=== PATIENT | female | born 1990 | race Caucasian/White ===

== ENCOUNTER → 2019-11-15 16:49 | Outpatient (BNVA) | payer MEDICAID, SELFPAY | PROVIDERS: Family Provider Nurse Practitioner Family; Visit Provider Nurse Practitioner Family | DX: R05 Cough (principal); R50.9 Fever, unspecified | CPT/HCPCS: 87635 ==

== ENCOUNTER → 2019-11-19 10:40 | Outpatient (BNVA) | payer MEDICAID, SELFPAY | PROVIDERS: Family Provider Nurse Practitioner Family; Visit Provider Nurse Practitioner Family | DX: J02.9 Acute pharyngitis, unspecified (principal); J32.9 Chronic sinusitis, unspecified; J30.89 Other allergic rhinitis | CPT/HCPCS: 87071; 87880 ==

== ENCOUNTER → 2020-02-16 10:57 | Outpatient (BNVA) | payer MEDICAID, SELFPAY | PROVIDERS: Family Provider Nurse Practitioner Family; Visit Provider Nurse Practitioner Family | DX: Z11.59 Encounter for screening for other viral diseases (principal); Z20.828 Contact with and (suspected) exposure to other viral communicable diseases; J06.9 Acute upper respiratory infection, unspecified | CPT/HCPCS: 87635 ==

== ENCOUNTER → 2020-05-18 15:58 | Outpatient (BNVA) | payer MEDICAID, SELFPAY | PROVIDERS: Family Provider Nurse Practitioner Family; Visit Provider Nurse Practitioner Family | DX: M79.641 Pain in right hand (principal) | CPT/HCPCS: 73130 ==

== ENCOUNTER → 2020-09-13 16:31 | Outpatient (BNVA) | payer MEDICAID, SELFPAY | PROVIDERS: Family Provider Nurse Practitioner Family; Visit Provider Nurse Practitioner Family | DX: N92.0 Excessive and frequent menstruation with regular cycle (principal); J30.89 Other allergic rhinitis; R53.83 Other fatigue; E55.9 Vitamin D deficiency, unspecified; Z79.899 Other long term (current) drug therapy; Z13.6 Encounter for screening for cardiovascular disorders | CPT/HCPCS: 80053; 80061; 81003; 82306; 83036; 83550; 84439; 84443; 85025 ==

== ENCOUNTER → 2020-10-02 15:09 | Outpatient (BNVA) | payer MEDICAID, SELFPAY | PROVIDERS: Family Provider Nurse Practitioner Family; Visit Provider Obstetrics & Gynecology | DX: M72.0 Palmar fascial fibromatosis [Dupuytren] (principal); N93.9 Abnormal uterine and vaginal bleeding, unspecified | CPT/HCPCS: 88175; 88305 ==

== ENCOUNTER → 2020-10-13 10:33 | Outpatient (BNVA) | payer MEDICAID, SELFPAY | PROVIDERS: Family Provider Nurse Practitioner Family; Visit Provider Obstetrics & Gynecology | DX: N93.9 Abnormal uterine and vaginal bleeding, unspecified (principal) | CPT/HCPCS: 76830 ==

== ENCOUNTER → 2020-11-09 14:36 | Outpatient (BNVA) | payer MEDICAID, SELFPAY | PROVIDERS: Family Provider Nurse Practitioner Family; PCP Nurse Practitioner Family; Visit Provider Obstetrics & Gynecology | DX: N93.9 Abnormal uterine and vaginal bleeding, unspecified (principal); R10.2 Pelvic and perineal pain | CPT/HCPCS: 87635 ==

== ENCOUNTER 2020-11-14 14:36 | Observation (INO) | payer MEDICAID, SELFPAY ==
[2020-11-10 13:42] VITALS: BMI 19.0
[2020-11-14] VITALS (15 sets, daily range): BP systolic 100–132; BP diastolic 51–74; PULSE 58–83; RESP 12–28; TEMP 36.4–36.8; O2SAT 97–100
[2020-11-14 10:38] LABS: Basophils % 0.3 %; Eosinophils # 0.1 10^3/uL (0.0-0.8); Eosinophils % 1.3 %; Hemoglobin 14.7 g/dL (11.5-15.3); Lymphocytes # 1.8 10^3/uL (0.8-4.8); Lymphocytes % 23.6 %; Mean Corpuscular HGB Conc 34.2 g/dL (30.0-36.0); Mean Corpuscular Hemoglobin 32.5 pg (28.0-34.0); Mean Corpuscular Volume 95.1 fL (81-99); Monocytes # 0.6 10^3/uL (0.2-0.9); Monocytes % 7.6 %; Neutrophils # 5.12 10^3/uL (1.8-7.7); Neutrophils % 66.9 %; Nucleated Red Blood Cells % 0 %; Platelet Count 203 10^3/cmm (130-400); Red Blood Count 4.52 10^6/uL (4.1-5.3); Red Cell Distribution Width 11.7 % (12.1-15.1); White Blood Count 7.6 10^3/uL (4.0-10.0)
[2020-11-14] MEDS: acetaminophen 1,000 MG/100 ML PIGGYBACK 400 MG IV (10:47)
[2020-11-14] MEDS: sodium chloride 0.9% 1,000 ML 30 ML IV (10:47)
[2020-11-14] MEDS: gabapentin 300 mg Capsule PO (10:51)
[2020-11-14] MEDS: phenazopyridine 100 mg Tablet 200 MG PO (10:51)
[2020-11-14] MEDS: CELEcoxib 200 mg Capsule 400 MG PO (10:51)
[2020-11-14] MEDS: ketorolac 30 mg/mL INJ IVP ×2 (10:51→16:32)
[2020-11-14 10:58] LABS: OR HCG Qualitative Urine Negative (Negative)
[2020-11-14 11:02] LABS: Anion Gap 15.1 (5-19); Blood Urea Nitrogen 10 mg/dL (6-20); Calcium 8.9 mg/dL (8.5-10.5); Carbon Dioxide 23 mmol/L (22-29); Chloride 106 mmol/L (98-107); Glomerular Filtration Rate 116.6 mL/min (90-130); Glucose 85 mg/dL (65-115); Osmolality Calculated 288 mOsm/kg (285-295); Potassium 4.1 mmol/L (3.5-5.1); Sodium 140 mmol/L (136-145)
--- NOTE | 2020-11-14 11:53 | W.PM.OPSUD ---
Surgery/Procedure H&P Update DATE OF PROCEDURE: November 14, 2020 DATE H&P PERFORMED: 11/09/20 H&P UPDATE INFORMATION: I have reviewed H&P completed within last 30 days, I have examined patient prior to procedure and No changes to prior documentation PREOP DIAGNOSIS: abnormal uterine bleeding PLANNED PROCEDURE: Operation Date: 11/14/20 11:35 Proposed Procedures p Laparoscopic Assist Vaginal Hysterectomy 57887 n93.9 r10.2(Not Applicable) - Tiff Mahoney MD s bilateral Salpingectomy(Bilateral) - Tiff Mahoney MD
--- NOTE | 2020-11-14 12:09 | P.ANESASSM_ITS ---
Pre-Anesthetic Assessment Pre-Anesthetic Assessment: Height/Weight: Height 1.63 m Weight 50.349 kg Temp Pulse Resp BP Pulse Ox 98.3 F 64 18 118/70 100 11/14/20 10:07 11/14/20 10:07 11/14/20 10:07 11/14/20 10:07 11/14/20 10:07 Preop Diagnosis: abnormal uterine bleeding Proposed Procedure: Operation Date: 11/14/20 11:35 Proposed Procedures p Laparoscopic Assist Vaginal Hysterectomy 83869 n93.9 r10.2(Not Applicable) - Tiff Mahoney MD s bilateral Salpingectomy(Bilateral) - Tiff Mahoney MD Was Beta Delon taken within 24 hours: N/A Was Clonidine taken within 24 hours: N/A Last intake: Intake Last Liquid Date 11/13/20 Last Liquid Time 22:00 Last Solid Date 11/13/20 Last Solid Time 18:00 Social: Social History: Tobacco and No alcohol Exam: Pre-Anes Outpt Exam: alert, oriented x 3 and clear to auscultation bilaterally Airway: Submandibular: WNL Cervical ROM: WNL MP: 2 History/ROS: No significant history except as noted Pulmonary: Pulmonary: None reported CV/HEM: CV/HEM: None reported : Comments: Cervical cancer Hepatic: Hepatic: None reported GI: GI: None reported Metabolic: Metabolic: None reported Musc/skel: Musc/skel: None reported Neuropsych: Neuropsych: None reported Anesthetic Plan: ASA status: 2 Anesthesia: General Meds/Allergies Current Medications: Current Medications Generic Name Dose Route Start Last Admin Trade Name Freq PRN Reason Stop Dose Admin Sodium Chloride 1,000 mls @ 30 ml s/hr 11/14/20 10:00 11/14/20 10:47 Sodium Chloride 0.9% IV 11/15/20 09:59 30 mls/hr .Q24H KE Administration PFSH Anesthesia PFSH: Medical History Cough Environmental and seasonal allergies Fatigue Hypertension screen Medication management Menorrhagia Vitamin D deficiency Surgical History History of tubal ligation 2014 at [facility] [place] Dr. Arango Family History Mother Cancer bone cancer Cervical cancer Ovarian cancer Clotting disorder Hypertension Stroke Ovarian cyst Grandfather Cancer Maternal-- cancer spread throughout body Family/Other Ovarian cancer Maternal Aunts x4 Cancer Nephew--appendix cancer Hypertension x1 Maternal Aunt Thyroid disease Maternal Aunt Ovarian cyst x3 Maternal Aunt Grandmother Clotting disorder Maternal Denies family history of Diabetes Hyperlipidemia Chronic kidney disease (CKD) Data Anesthesia CBC & Chem 7: 11/14/20 10:31 11/14/20 10:31 Other Labs: Laboratory Results - last 48 hr 11/14/20 11/14/20 11/14/20 10:31 10:31 10:56 WBC 7.6 RBC 4.52 Hgb 14.7 Hct 43.0 MCV 95.1 MCH 32.5 MCHC 34.2 RDW 11.7 L Plt Count 203 MPV 11.0 H Neut % (Auto) 66.9 Lymph % (Auto) 23.6 [place] % (Auto) 7.6 Eos % (Auto) 1.3 Baso % (Auto) 0.3 Neut # (Auto) 5.12 Lymph # (Auto) 1.8 [place] # (Auto) 0.6 Eos # (Auto) 0.1 Baso # (Auto) 0.0 Nucleated RBC % (auto) 0 Nucleated RBCs # 0.0 Sodium 140 Potassium 4.1 Chloride 106 Carbon Dioxide 23 Anion Gap 15.1 BUN 10 Creatinine 0.6 GFR Calculation 116.6 Glucose 85 Calculated Osmolality 288 Calcium 8.9 Urine HCG, Qual Negative Cardiac Studies: No Data to Display
[2020-11-14] MEDS: vasopressin 20 unit/mL INJ INJECTION (14:00)
--- NOTE | 2020-11-14 14:36 | PM.OP ---
Operative Report Date of procedure: November 14, 2020 Pre-op Diagnosis: abnormal uterine bleeding Post-op diagnosis: same Post-op Findings: Normal appearing uterus, tubes and ovaries Procedure Done: laparoscopic assisted vaginal hysterectomy, cystoscopy Specimens removed/disposition: uterus, bilateral fallopian tubes Surgeon: Tiff Mahoney Anesthesia: General Estimated blood loss (mL): 150 IV fluids (mL): 800 Urine output (mL): 20 Complications: none Condition: stable Disposition: PACU Procedure: The patient was taken to the operating room where general anesthesia was administered and found to be adequate. She was prepped and draped in the normal sterile fashion in the dorsal lithotomy position in [facility]. A Castro catheter was placed. A weighted speculum was placed into the vagina and the anterior lip of the cervix was grasped with a single tooth tenaculum. The Zumi uterine manipulator was placed. The weighted speculum was removed. The gloves were changed and attention was turned to the abdomen. A 5 mm infraumbilical incision was made. Using a 5 mm port with the camera, the port was placed into the abdomen. The abdomen was insufflated. Two low, lateral 5 mm ports were placed on the left and right under direct visualization from the camera. The right tube and ovary were grasped and elevated. Using the laparoscopic cautery, the infundibulopelvic ligaement as well as the round ligament were ligated. This was performed the same way on the left. The bladder flap was created sharply with the scissors. Attention was then turned to the vaginal portion of the procedure. The weighted speculum was placed into the vagina. The zumi manipulator was removed. The single tooth tenaculum was removed and replaced with the angeline's tenaculum. 5 mL of dilute Pitressin was injected at the vesicovaginal junction. A circumferential incision was made at the vesicovaginal junction and the vaginal mucosa reflected cephalad. The posterior peritoneum was entered sharply with the Metzenbaum scissors and the long weighted speculum replaced. Using the Janna clamps the uterosacral ligaments were clamped cut and suture-ligated. Then sequentially the uterine arteries and cardinal ligaments were clamped cut and suture-ligated. A single-tooth tenaculum was used to deliver the uterus. The utero-ovarian ligaments were clamped cut and suture-ligated bilaterally and the specimen was removed. The bilateral fallopian tubes and ovaries were visualized and found to be normal. The peritoneum was closed with a pursestring using 2-0 Vicryl. The vaginal cuff was closed with 0 Vicryl in a running locked pattern incorporating the uterosacral ligaments into the lateral aspects of the vaginal cuff. The Castro catheter was removed and the cystoscope advanced into the bladder. The patient was given pyridium and bilateral spill was noted. There were no injuries or deficits noted in the bladder. The cystoscope was removed and the Castro was replaced. Vaginal packing was placed for good hemostasis. Tolerated the procedure well. Sponge lap and needle counts were correct x3. She was taken to the recovery room in stable condition.
[2020-11-14] MEDS: ondansetron 2 mg/ML SDV 2 mL 4 MG IVP (14:55)
[2020-11-14] MEDS: HYDROmorphone 1 mg/mL INJ 1 mL 0.5 MG IVP (14:57)
--- NOTE | 2020-11-14 16:02 | ANE.PACU2 ---
Inpatient post-anesthesia follow up: Airway intact: Yes Vital signs: Temperature 98 F Pulse Rate 60 Respiratory Rate 16 Blood Pressure 132/74 Pulse Oximetry 100 Oxygen Delivery Me thod Room Air Oxygen Flow Rate 8 Fraction of Inspir ed Oxygen Hydration adequate: Yes Nausea and vomiting: No Pain level: 4 Mental status: Baseline
[2020-11-14] MEDS: docusate sodium 100 mg Capsule PO (18:37)
[2020-11-14] MEDS: HYDROcodone-acetaminophen 5-325 mg Tablet PO (19:20)
[2020-11-14] MEDS: dextrose 5%-lactated ringers 1,000 ML 125 ML IV (19:23)
--- NOTE | 2020-11-14 21:06 | PC.NURSE ---
Patient up to ambulate floor. This RN with patient for intial ambulation activity. Patient tolerates activity well. AR RN
[2020-11-14] MEDS: acetaminophen 325 mg Tablet 650 MG PO (23:27)
[2020-11-15] MEDS: HYDROcodone-acetaminophen 5-325 mg Tablet PO ×2 (00:55→07:31)
[2020-11-15 04:00] VITALS: BP 112/62; PULSE 70; RESP 16; TEMP 36.9; O2SAT 98
[2020-11-15] MEDS: dextrose 5%-lactated ringers 1,000 ML 125 ML IV (04:04)
--- NOTE | 2020-11-15 05:49 | PC.NURSE ---
Patient in hallways ambulating OBGYN floor for the 2nd time this shift. DEENA RN
[2020-11-15 06:06] LABS: Hematocrit 38.1 % (37.0-47.0); Hemoglobin 12.6 g/dL (11.5-15.3); Mean Corpuscular HGB Conc 33.1 g/dL (30.0-36.0); Mean Corpuscular Hemoglobin 32.1 pg (28.0-34.0); Mean Corpuscular Volume 96.9 fL (81-99); Mean Platelet Volume 11.6 fL (7.4-10.4); Platelet Count 200 10^3/cmm (130-400); Red Blood Count 3.93 10^6/uL (4.1-5.3); Red Cell Distribution Width 11.7 % (12.1-15.1); White Blood Count 17.1 10^3/uL (4.0-10.0)
[2020-11-15] MEDS: docusate sodium 100 mg Capsule PO (08:44)
[2020-11-15] MEDS: ibuprofen 800 mg tablet PO (08:44)
--- NOTE | 2020-11-15 10:11 | PC.NURSE ---
Dr Mahoney in room and removed packing
[2020-11-15 10:30] VITALS: BP 124/78; PULSE 52; RESP 18; TEMP 36.6; O2SAT 100
--- NOTE | 2020-11-15 11:06 | P.DS_ITS ---
Discharge Providers Date of Admission: 11/14/20 14:36 Date of Discharge: November 15, 2020 Attending Provider at Admission: Tiff Mahoney MD Attending Provider at Discharge: Tiff Mahoney MD Primary Care Provider: HENRY Pena Diagnoses at Discharge Discharge Diagnosis (1) state: Status: Acute Reason for Visit Reason for Visit: total vag hysterectomy Hospital Course Hospital Course The patient was admitted for surgery. She did well postoperatively and was ready for discharge on day #1 Physical Exam Const: COMMON NORMALS: no acute distress, average body habitus, patient oriented x3, no limitations, healthy appearing and alert GENERAL APPEARANCE: cooperative, comfortable, well kempt and well developed ORIENTATION/CONSCIOUSNESS: Yes awake, Yes oriented to person, Yes oriented to place and Yes oriented to time Neck/C-Spine: COMMON NORMALS: full ROM and supple Resp: COMMON NORMALS: normal respiratory effort EFFORT & INSPECTION: Yes able to speak in complete sentences GI: COMMON NORMALS: Soft to palpation and non-tender PALPATION: Yes Soft to palpation : EXTERNAL FEMALE EXAM: Yes other (packing removed) Extremity: COMMON NORMALS: no clubbing, cyanosis or edema and no calf tendern ess Neuro: COMMON NORMALS: patient oriented x3 SENSORIUM/ORIENTATION: Yes alert, Yes oriented to person, Yes oriented to place and Yes oriented to time Psych: APPEARANCE: Yes well kempt Urinary Catheter Management^: Castro: Cath Placed During This Visit: yes, but has since been removed by the nurse Reason for Continuing Indwelling Catheter: Decision to DC Catheter Urinary Catheter Date of Insertion: 11/14/20 Urinary Catheter Time of Insertion: 13:00 Date Urinary Catheter Removed: 11/15/20 Time Urinary Catheter Discontinued: 10:05 Discharge Data Data Completed and Pending: Pending at discharge Category Date Time Status ES surgery / GI i mages Routine Exams 11/14/20 12:55 Ordered Urine Culture Rou elzbi[facility] 11/14/20 09:59 Results Pathology: Surgic al [PTH] Routine Pth 11/14/20 14:21 Received Labs from last 24 hours 11/15/20 05:15 WBC 17.1 H RBC 3.93 L Hgb 12.6 Hct 38.1 MCV 96.9 MCH 32.1 MCHC 33.1 RDW 11.7 L Plt Count 200 MPV 11.6 H Vitals: Last Vital Signs Temp 98.4 F 11/15/20 04:00 Pulse 70 11/15/20 04:00 Resp 16 11/15/20 04:00 BP 112/62 11/15/20 04:00 Pulse Ox 98 11/15/20 04:00 Discharge Plan Discharge Patient Disposition: Home Condition: Stable Prescriptions: New oxycodone-acetaminophen 5-325 mg tablet 1 tab PO Q4H Qty: 30 RF: 0 Continued ibuprofen 800 mg tablet 800 mg PO Q8H RF: 0 ferrous gluconate 324 mg (37.5 mg iron) tablet 324 mg PO DAILY Qty: 30 RF: 2 cholecalciferol (vitamin D3) 1,250 mcg (50,000 unit) capsule 1,250 mcg PO .weekly Qty: 4 RF: 2 Discharge Orders: Discharge Order (Routine); Ordered 11/15/20 Ordered By: Tiff Mahoney Referrals: Tiff Mahoney MD [Physician] - 11/20/20 3:00 pm (* Your incision check is on 11/20/2020 at 3:00pm * Your 6 week follow up appointment is on 12/25/2020 at 2:00pm) Patient Instructions: Vaginal Hysterectomy (DC), Cystoscopy (DC), Laparoscopic Hysterectomy (DC), OB Discharge Report, OB Food/Drug Interaction Guide, Opioid Safety Discharge Attestations Time Spent in Discharge Care*: less than 30 min Quality Metrics Clinical Quality Measures During this hospital stay, did patient experience: None Coding Level of Care Code Acute Chg FW DC note Diagnoses state Z39.2
[2020-11-15 11:13] VITALS: BP 124/78; PULSE 52; RESP 18; TEMP 36.6; O2SAT 100
== END 2020-11-15 11:20 | disposition home or self-care (01) ==
LOC: OBGYN 14:37
PROVIDERS: Admitting Provider Obstetrics & Gynecology; PCP Nurse Practitioner Family; Visit Provider Obstetrics & Gynecology
PROC: 0UT9FZZ Resection of Uterus, Via Natural or Artificial Opening With Percutaneous Endoscopic Assistance (ICD-10-PCS; CPT 58552; principal; 2020-11-14 11:35)
PROC: (CPT 58700; 2020-11-14 11:35)
PROC: 0TJB8ZZ Inspection of Bladder, Via Natural or Artificial Opening Endoscopic (ICD-10-PCS; CPT 52000; 2020-11-14 11:35)
DX: N93.9 Abnormal uterine and vaginal bleeding, unspecified (principal)
CPT/HCPCS: 58552; 36415; 80048; 84703; 85025; 85027; 87086; 88307; G0378; J0690; J1100; J1170; J1885; J2405; J2704; J3010; J3490; J7030

== ENCOUNTER 2022-02-18 21:25 | Emergency (ER) | payer MEDICAID, SELFPAY ==
[2022-02-18 21:30] VITALS: BP 134/85; PULSE 98; RESP 16; TEMP 36.8; O2SAT 100; BMI 19.7
--- NOTE | 2022-02-18 22:41 | ED_ITS ---
HPI - Female Genitourinary General: Chief complaint: Urogenital-Female Stated complaint: bladder pain Time Seen by Provider: 02/18/22 22:35 History of Present Illness: 31-year-old female comes in today with complaints of pelvic discomfort. Patient reports increased pain with urination. Patient appears in mild to moderate pain. Patient appears nontoxic. Patient reports no fever or nausea or vomiting. Patient does have a grade 3 cystocele and is scheduled for surgical repair later in the month. Patient came in tonight due to increased pain and discomfort. Review of Systems Const: Denies: fever(s) : Reports: difficulty voiding and dysuria [facility] ED PFSH: Medical History (Updated 02/18/22 @ 23:37 by HENRY Man) Carpal tunnel syndrome Cough Dupuytrens contracture Environmental and seasonal allergies Fatigue Hypertension screen Medication management Menorrhagia state Right hand pain Vitamin D deficiency Surgical History (Updated 01/30/22 @ 11:23 by Tiff Mahoney MD) History of tubal ligation 2014 at [facility] [place] Dr. Arango Hx of hysterectomy (~11/14/20) Laproscopic assisted vaginal hysterectomy-- Dr. Mahoney at [facility] Family History Mother Cancer bone cancer Cervical cancer Ovarian cancer Clotting disorder Hypertension Stroke Ovarian cyst Grandfather Cancer Maternal-- cancer spread throughout body Family/Other Ovarian cancer Maternal Aunts x4 Cancer Nephew--appendix cancer Hypertension x1 Maternal Aunt Thyroid disease Maternal Aunt Ovarian cyst x3 Maternal Aunt Grandmother Clotting disorder Maternal Denies family history of Diabetes Hyperlipidemia Chronic kidney disease (CKD) Social History Smoking and tobacco status: current every day smoker Physical Exam Const: COMMON NORMALS: alert HENMT: COMMON NORMALS: normocephalic HEAD & SCALP: normocephalic Neck/C-Spine: COMMON NORMALS: full ROM Resp: COMMON NORMALS: normal respiratory effort and clear to auscultation bilaterally AUSCULTATION: clear to auscultation bilaterally Cardio: COMMON NORMALS: regular rate RATE: regular rate : COMMON NORMALS: Yes no CVA tenderness BLADDER/KIDNEY EXAM: Yes no CVA tenderness Back/Pelvis: COMMON NORMALS: no CVA tenderness Neuro: SENSORIUM/ORIENTATION: Yes alert Skin: COMMON NORMALS: no rashes or lesions noted GENERAL SKIN EXAM: no rashes or lesions noted Course Vital Signs: Vital signs: Vital Signs Temperature 98.2 F 02/18/22 21:30 Pulse Rate 98 02/18/22 21:30 Respiratory Rate 16 02/18/22 21:30 Blood Pressure 134/85 02/18/22 21:30 Pulse Oximetry 100 02/18/22 21:30 Oxygen Delivery Me thod 02/18/22 21:30 MDM - Female Medical Decision Making 31-year-old female comes in today for complaints of pelvic pain with urination. Patient has a cystocele and is scheduled later this month for repair. On exam abdomen soft nontender. Bowel sounds are normal. Patient showed me a picture of her external genitalia which notes a visible urethra but no other signs of abnormality. Differential diagnosis includes urinary tract infection, cystocele, malingering. Urinalysis was unremarkable. Patient had significant improvement in pain after hydrocodone tablet. Patient was written for some Pyridium recommend to use it for discomfort and 5 tablets of hydrocodone for breakthrough pain. Encourage fluids rest and follow-up with primary care and [facility]. Lab Data Laboratory Results HCG, Qual Negative (Negative) 02/18/22:44 Urine Color Colorless (Yellow) 02/18/22:44 Urine Appearance Clear (CLEAR) 02/18/22 22:44 Urine pH 7 (5-7) 02/18/22:44 Ur Specific [place] 1.000 (1.005-1.030) L 02/18/22:44 Urine Protein Neg (Negative) 02/18/22 22:44 Urine Glucose (UA) Norm (Normal) 02/18/22 22:44 Urine Ketones Negative (Negative) 02/18/22 22:44 Urine Blood Neg (Negative) 02/18/22:44 Urine Nitrate Negative (Negative) 02/18/22:44 Urine Bilirubin Neg (Negative) 02/18/22 22:44 Urine Urobilinogen Norm mg/dL (Negative) 02/18/22 22:44 Ur Leukocyte Esterase Negative (Negative) 02/18/22 22:44 Discharge Plan Discharge Patient Disposition: Home Clinical Impression: [place]-Walker grade 3 cystocele, Dysuria Condition: Stable Prescriptions: New phenazopyridine 100 mg tablet 100 mg PO Q8H PRN (Reason: dysuria) Qty: 10 0RF hydrocodone-acetaminophen 5-325 mg tablet 1 tab PO Q8H PRN (Reason: pain) Qty: 5 0RF No Action sulfamethoxazole-trimethoprim [Bactrim DS] 800-160 mg tablet 1 tab PO BID 10 Days Qty: 20 0RF Discharge Orders: Discharge ED (Routine); Ordered 02/18/22 Ordered By: Adin Plaza Referrals: Jessie Acosta FNP [Primary Care Provider] - Discharge Diet: Usual diet Discharge Activity: Increase activity as tolerated Patient Instructions: Dysuria (ED), Opioid Safety Activity Restrictions/Additional Instructions: Follow-up with [facility] in the morning. Drink plenty of water. Return to ER for fever greater than 100.4, uncontrolled pain, persistent nausea and vomiting. Coding Level of Care Code ED Assessment Consultant for Annemarie Fwd Exam Detailed
[2022-02-18 22:55] LABS: HCG Qualitative Urine. Negative (Negative)
[2022-02-18] MEDS: HYDROcodone-acetaminophen 5-325 mg Tablet 1 TAB PO (23:02)
[2022-02-18 23:21] LABS: Add Urine Microscopic? NO; Charge for UA Resulting for Rev
[2022-02-18 23:29] LABS: Urine Appearance Clear (CLEAR); Urine Color Colorless (Yellow); pH Urine 7 (5-7)
[2022-02-18 23:30] LABS: Bilirubin Urine Neg (Negative); Blood Urine Neg (Negative); Glucose Urine UA Norm (Normal); Ketones Urine Negative (Negative); Leukocyte Esterase Urine Negative (Negative); Nitrate Urine Negative (Negative); Protein Urine Neg (Negative); Urobilinogen Urine Norm (Negative)
[2022-02-18] MEDS: phenazopyridine 100 mg Tablet 200 MG PO (23:42)
== END 2022-02-18 23:48 | disposition home or self-care (01) ==
PROVIDERS: Emergency Medicine; Emergency Provider Nurse Practitioner Family; PCP Nurse Practitioner
DX: N81.10 Cystocele, unspecified (principal); R30.0 Dysuria; F17.210 Nicotine dependence, cigarettes, uncomplicated
CPT/HCPCS: 81003; 81025; 99283

== ENCOUNTER 2022-03-05 14:09 | Observation (INO) | payer MEDICAID, SELFPAY ==
[2022-03-04 08:54] VITALS: BMI 19.7
[2022-03-05] VITALS (21 sets, daily range): BP systolic 91–129; BP diastolic 51–91; PULSE 50–87; RESP 8–18; TEMP 36.1–36.7; O2SAT 97–100
[2022-03-05] MEDS: acetaminophen 1,000 MG/100 ML PIGGYBACK 400 MG IV (11:15)
[2022-03-05] MEDS: sodium chloride 0.9% 1,000 ML 30 ML IV (11:15)
[2022-03-05] MEDS: phenazopyridine 100 mg Tablet 200 MG PO (11:37)
[2022-03-05] MEDS: scopolamine 1.5 Patch 1 PATCH TRANSDERMA (11:37)
--- NOTE | 2022-03-05 11:41 | P.HPUD_ITS ---
Surgery/Procedure H&P Update DATE OF PROCEDURE: March 05, 2022 DATE H&P PERFORMED: 02/28/22 H&P UPDATE INFORMATION: I have reviewed H&P completed within last 30 days, I have examined patient prior to procedure and No changes to prior documentation PREOP DIAGNOSIS: cystocele, stress incontinence PLANNED PROCEDURE: Operation Date: 03/05/22 12:30 Proposed Procedures p Anterior repair 90341, possible sling 16845,N81.2 Patient is allergic to Latex(Not Applicable) - Tiff Mahoney MD s Possible Sling(Not Applicable) - Tiff Mahoney MD Related Problem List Diagnoses (1) [place]-Walker grade 3 cystocele:
--- NOTE | 2022-03-05 12:29 | P.ANESASSM_ITS ---
Pre-Anesthetic Assessment Height/Weight: Height 1.63 m Weight 52.163 kg Temp Pulse Resp BP Pulse Ox O2 Del Method 97.3 F L 86 18 129/91 99 03/05/22 11:05 03/05/22 11:05 03/05/22 11:05 03/05/22 11:05 03/05/22 11:05 03/05/22 11:05 Preop Diagnosis: cystocele, stress incontinence Operation Date: 03/05/22 12:30 Proposed Procedures p Anterior repair 65695, possible sling 56277,N81.2 Patient is allergic to Latex(Not Applicable) - Tiff Mahoney MD s Possible Sling(Not Applicable) - Tiff Mahoney MD Familial anesthetic complications: none Was Beta Delon taken within 24 hours: N/A Was Clonidine taken within 24 hours: N/A Last intake: Intake Last Liquid Date 03/04/22 Last Liquid Time 18:00 Last Solid Date 03/04/22 Last Solid Time 18:00 Social Tobacco and No alcohol Exam alert, oriented x 3 and regular rate & rhythm Airway Submandibular: within normal limits Cervical ROM: within normal limits Mallampati: Class II Pulmonary Chronic Obstructive Pulmonary Disease Anesthetic Plan ASA status: 2 Anesthesia: General Medications/Allergies Home Medications Medication Instructions Recorded Confirmed Last Taken Type acetaminophen 325 mg tablet 325 mg PO QID PRN Pain 02/28/22 03/05/22 03/04/22 History (Tylenol) ibuprofen 200 mg tablet 200 mg PO Q6H PRN Pain 02/28/22 03/05/22 03/04/22 His tory Allergies Allergy/AdvReac Type Severity Reaction Status Date / Time Latex, Natural Rubber Allergy Intermediate sick Verified 02/28/22 08:17 Current Medications Generic Name Dose Route Start Last Admin Trade Name Freq PRN Reason Stop Dose Admin Sodium Chloride 1,000 mls @ 30 mls/hr 03/05/22 11:00 03/05/22 11:15 Sodium Chloride 0.9% IV 03/06/22 10:59 30 mls/hr .Q24H KE Administration PFSH Anesthesia Medical History Carpal tunnel syndrome Cough Dupuytrens contracture Environmental and seasonal allergies Fatigue Hypertension screen Medication management Menorrhagia state Right hand pain Vitamin D deficiency Surgical History History of tubal ligation 2015 at [facility] [place] Dr. Arango Hx of hysterectomy (~11/14/20) Laproscopic assisted vaginal hysterectomy-- Dr. Mahoney at [facility] Family History Mother Cancer bone cancer Cervical cancer Ovarian cancer Clotting disorder Hypertension Stroke Ovarian cyst Grandfather Cancer Maternal-- cancer spread throughout body Family/Other Ovarian cancer Maternal Aunts x4 Cancer Nephew--appendix cancer Hypertension x1 Maternal Aunt Thyroid disease Maternal Aunt Ovarian cyst x3 Maternal Aunt Grandmother Clotting disorder Maternal Denies family history of Diabetes Hyperlipidemia Chronic kidney disease (CKD) Social History Smoking and tobacco status: current every day smoker Data Anesthesia Cardiac Studies: No Data to Display
[2022-03-05] MEDS: ceFAZolin 2,000 MG in sodium chloride 0.9% (plus) 50 ML 100 MG IV ×2 (13:00→21:45)
--- NOTE | 2022-03-05 13:48 | PM.OP ---
Operative Report Date of procedure: March 05, 2022 Pre-op diagnosis: Preop Diagnosis cystocele, stress incontinence Post-op diagnosis: same Procedure done: anterior repair Surgeon: Tiff Mahoney Anesthesia: MAC Estimated blood loss (mL): 10 IV fluids (mL): 700 Urine output (mL): 50 Complications: none Findings: once bladder is drained, first degree cystocele. Condition: stable Disposition: PACU Brief History: The patient underwent a vaginal hysterectomy about a year ago. She presented last month with complaints of falling bladder She had a grade 3 cystocele on exam. She wanted it repaired. Procedure: The patient was taken to the operating room, where monitored anesthesia was administered and found to be adequate. She was prepped and draped in the normal sterile fashion in the dorsal lithotomy position in tanja stirrups. A demarco catheter was placed. Once the bladder was drained, there was a grade 1 cystocele. The vaginal cuff was identified and an allis clamp was placed in the midline of the vaginal mucosa, approximately 2 cm anterior to the cuff. A second allis clamp was placed in the midline of the vaginal mucosa, approximately 3 cm from the introitus. An incision was made in the midline from clamp to clamp. The vaginal mucosa was clamped laterally and the cystocle dissected off of the vesicovaginal fascia. The vesicovaginal fascia was brought together in the midline with figure of 8 interrupted sutures of O-Vicryl. The excess vaginal tissue was trimmed. The incision was repaired with 0-Vicryl in a running fashion. Vaginal packing was placed. Sponge lap and needle counts were correct x3. She was taken to the recovery room in stable condition.
[2022-03-05] MEDS: ketorolac 30 mg/mL INJ IVP ×2 (15:21→20:18)
[2022-03-05] MEDS: dextrose 5%-lactated ringers 1,000 ML 125 ML IV ×2 (15:21→23:09)
[2022-03-05] MEDS: docusate sodium 100 mg Capsule PO (16:55)
[2022-03-05] MEDS: HYDROcodone-acetaminophen 5-325 mg Tablet PO ×2 (16:55→23:09)
--- NOTE | 2022-03-05 17:10 | ANE.PACU2 ---
Inpatient post-anesthesia follow up: Airway intact: Yes Vital signs: Temperature 97 F Pulse Rate 52 Respiratory Rate 17 Blood Pressure 102/71 Pulse Oximetry 100 Oxygen Delivery Me thod Room Air Oxygen Flow Rate 8 Fraction of Inspir ed Oxygen Hydration adequate: Yes Nausea and vomiting: No Pain level: 3 Mental status: Baseline
[2022-03-06] MEDS: ketorolac 30 mg/mL INJ IVP (02:16)
[2022-03-06 03:00] VITALS: BP 95/54; PULSE 62; RESP 16; O2SAT 97
[2022-03-06 05:00] VITALS: BP 102/64; PULSE 56; TEMP 36.7; O2SAT 98
[2022-03-06] MEDS: ceFAZolin 2,000 MG in sodium chloride 0.9% (plus) 50 ML 100 MG IV (05:03)
[2022-03-06 05:30] LABS: Hematocrit 36.1 % (37.0-47.0); Hemoglobin 12.6 g/dL (11.5-15.3); Mean Corpuscular HGB Conc 34.9 g/dL (30.0-36.0); Mean Corpuscular Hemoglobin 33.2 pg (28.0-34.0); Mean Corpuscular Volume 95.3 fl (81-99); Mean Platelet Volume 11.4 fL (7.4-10.4); Platelet Count 213 10^3/cmm (130-400); Red Blood Count 3.79 10^6/uL (4.1-5.3); Red Cell Distribution Width 11.5 % (12.1-15.1); White Blood Count 19.3 10^3/uL (4.0-10.0)
[2022-03-06] MEDS: HYDROcodone-acetaminophen 5-325 mg Tablet PO (05:31)
--- NOTE | 2022-03-06 09:02 | P.DS_ITS ---
Discharge Providers Date of Admission: 03/05/22 14:09 Date of Discharge: March 06, 2022 Attending Provider at Admission: Tiff Mahoney MD Attending Provider at Discharge: Tiff Mahoney MD Primary Care Provider: Jessie Acosta APN Diagnoses at Discharge Discharge Diagnosis (1) [place]-Walker grade 3 cystocele: Status: Acute Reason for Visit Reason for Visit: cystocele Hospital Course Hospital Course The patient was admitted for surgery. She did well postoperatively and was ready for discharge. Physical Exam Narrative: The patient is doing well this morning. She has been able to void after the catheter was removed. She states that the pressure is improved after surgery. Const: COMMON NORMALS: no acute distress, average body habitus, patient oriented x3, no limitations, healthy appearing, alert and well nourished GENERAL APPEARANCE: cooperative, comfortable, well kempt and well developed ORIENTATION/CONSCIOUSNESS: Yes awake, Yes oriented to person, Yes oriented to place and Yes oriented to time Resp: COMMON NORMALS: normal respiratory effort EFFORT & INSPECTION: Yes able to speak in complete sentences GI: COMMON NORMALS: Soft to palpation and non-tender PALPATION: Yes Soft to palpation Extremity: COMMON NORMALS: no calf tenderness Neuro: COMMON NORMALS: patient oriented x3 SENSORIUM/ORIENTATION: Yes alert, Yes oriented to person, Yes oriented to place and Yes oriented to time Psych: COMMON NORMALS: mental status grossly normal, Normal thought process present, cooperative, normal affect and speech normal APPEARANCE: Yes well kempt SPEECH: Yes normal speech THOUGHT PROCESS: Normal thought process present Urinary Catheter Management: Castro Latex Free: Cath Placed During This Visit: yes, but has since been removed by the nurse Reason for Continuing Indwelling Catheter: Decision to DC Catheter Urinary Catheter Date of Insertion: 03/05/22 Urinary Catheter Time of Insertion: 13:18 Date Urinary Catheter Removed: 03/06/22 Time Urinary Catheter Discontinued: 05:00 Discharge Data Studies Completed and Pending Pending at discharge Category Date Time Status Urine Culture Routine Lab 03/05/22 13:18 Received Laboratory Results WBC 19.3 10^3/uL (4.0-10.0) H 03/06/22 05:23 RBC 3.79 10^6/uL (4.1-5.3) L 03/06/22 05:23 Hgb 12.6 g/dL (11.5-15.3) 10/26/22 05:23 Hct 36.1 % (37.0-47.0) L 03/06/22 05:23 MCV 95.3 fl (81-99) 03/06/22 05:23 MCH 33.2 pg (28.0-34.0) 03/06/22 05:23 MCHC 34.9 g/dL (30.0-36.0) 03/06/22 05:23 RDW 11.5 % (12.1-15.1) L 03/06/22 05:23 Plt Count 213 10^3/cmm (130-400) 03/06/22 05:23 MPV 11.4 fL (7.4-10.4) H 03/06/22 05:23 Vitals Last Vital Signs Temp 98.1 F 03/06/22 05:00 Pulse 56 L 03/06/22 05:00 Resp 16 03/06/22 03:00 BP 102/64 03/06/22 05:00 Pulse Ox 98 03/06/22 05:00 O2 Del Method 03/06/22 05:00 O2 Flow Rate 8 03/05/22 13:50 Discharge Plan Discharge Patient Disposition: Home Condition: Stable Prescriptions: New ibuprofen 800 mg Tablet 800 mg PO Q8H Qty: 30 0RF hydrocodone-acetaminophen 5-325 mg Tablet 1 tab PO Q4H PRN (Reason: Moderate To Severe Pain) Qty: 30 0RF Discontinued acetaminophen [Tylenol] 325 mg tablet 325 mg PO QID PRN (Reason: Pain) ibuprofen 200 mg tablet 200 mg PO Q6H PRN (Reason: Pain) Discharge Orders: Discharge Order (Routine); Ordered 03/06/22 Ordered By: Tiff Mahoney Patient Instructions: Opioid Safety Discharge Attestations Time Spent in Discharge Care*: less than 30 min Quality Metrics Clinical Quality Measures [ No reported AMI, CVA or VTE this stay] Coding Level of Care Code Acute Chg FW DC note Diagnoses [place] grade 3 cystocele N81.10
[2022-03-06 09:30] VITALS: BP 121/81; PULSE 50; TEMP 36.8; O2SAT 99
[2022-03-06 10:15] VITALS: BP 121/81; PULSE 50; TEMP 36.8; O2SAT 99
== END 2022-03-06 09:30 | disposition home or self-care (01) ==
LOC: OBGYN 14:09
PROVIDERS: Admitting Provider Obstetrics & Gynecology; PCP Nurse Practitioner; Visit Provider Obstetrics & Gynecology
PROC: 0JQC0ZZ Repair Pelvic Region Subcutaneous Tissue and Fascia, Open Approach (ICD-10-PCS; CPT 57240; principal; 2022-03-05 12:20)
DX: N81.10 Cystocele, unspecified (principal); N39.3 Stress incontinence (female) (male); Z90.710 Acquired absence of both cervix and uterus; J44.9 Chronic obstructive pulmonary disease, unspecified; F17.210 Nicotine dependence, cigarettes, uncomplicated
CPT/HCPCS: 57240; 57288; 36415; 85027; 87086; 96374; 96376; G0378; J0131; J0690; J1100; J1170; J1885; J2250; J2405; J2704; J3010; J3490; J7030; J7121

== ENCOUNTER → 2022-03-13 15:17 | Outpatient (BNVA) | payer MEDICAID, SELFPAY | PROVIDERS: PCP Nurse Practitioner; Visit Provider Obstetrics & Gynecology | DX: Z34.90 Encounter for supervision of normal pregnancy, unspecified, unspecified trimester (principal); N13.9 Obstructive and reflux uropathy, unspecified | CPT/HCPCS: 84315; 87086 ==

== ENCOUNTER → 2022-04-16 09:24 | Outpatient (BNVA) | payer MEDICAID, SELFPAY | PROVIDERS: PCP Nurse Practitioner; Visit Provider Nurse Practitioner | DX: R50.9 Fever, unspecified (principal); J11.1 Influenza due to unidentified influenza virus with other respiratory manifestations | CPT/HCPCS: 87400 ==

== ENCOUNTER → 2022-08-09 09:51 | Outpatient (BNVA) | payer MEDICAID, SELFPAY | PROVIDERS: PCP Nurse Practitioner; Visit Provider Nurse Practitioner Family | DX: J02.0 Streptococcal pharyngitis (principal) | CPT/HCPCS: 87880 ==

== ENCOUNTER → 2022-09-16 15:36 | Outpatient (BNVA) | payer MEDICAID, SELFPAY | PROVIDERS: PCP Nurse Practitioner; Visit Provider Nurse Practitioner | DX: E55.9 Vitamin D deficiency, unspecified (principal); F41.9 Anxiety disorder, unspecified | CPT/HCPCS: 80053; 82306; 83735; 84443; 85025 ==

== ENCOUNTER → 2022-10-08 11:41 | Outpatient (BNVA) | payer MEDICAID, SELFPAY | PROVIDERS: PCP Nurse Practitioner; Visit Provider Nurse Practitioner | DX: N39.0 Urinary tract infection, site not specified (principal) | CPT/HCPCS: 81000; 87077; 87086; 87184 ==

== ENCOUNTER → 2023-02-26 15:22 | Outpatient (BNVA) | payer MEDICAID, SELFPAY | PROVIDERS: PCP Nurse Practitioner; Visit Provider Nurse Practitioner Family | DX: R53.83 Other fatigue (principal) | CPT/HCPCS: 80053; 84443; 85025 ==

== ENCOUNTER → 2023-04-21 10:50 | Outpatient (BNVA) | payer MEDICAID, SELFPAY | PROVIDERS: PCP Nurse Practitioner; Visit Provider Nurse Practitioner Family | DX: R10.2 Pelvic and perineal pain (principal); Z98.890 Other specified postprocedural states | CPT/HCPCS: 81000 ==

== ENCOUNTER → 2023-05-02 10:00 | Outpatient (BNVA) | payer MEDICAID, SELFPAY | PROVIDERS: PCP Nurse Practitioner; Visit Provider Obstetrics & Gynecology | DX: R10.2 Pelvic and perineal pain (principal) | CPT/HCPCS: 81000; 87086 ==

== ENCOUNTER → 2023-07-24 15:50 | Outpatient (BNVA) | payer MEDICAID, SELFPAY | PROVIDERS: PCP Nurse Practitioner Family; Visit Provider Nurse Practitioner Family | DX: M67.912 Unspecified disorder of synovium and tendon, left shoulder (principal); X58.XXXA Exposure to other specified factors, initial encounter | CPT/HCPCS: 73030 ==

== ENCOUNTER 2023-09-19 11:53 | Outpatient (CLI) | payer MEDICAID, SELFPAY ==
--- NOTE | 2023-09-19 12:15 | MR_ITS ---
WS: [id number] MRI LEFT SHOULDER NONCONTRAST TECHNIQUE: Sagittal T2, coronal T1, T2 and proton density imaging. Axial gradient PDE imaging. CLINICAL INFORMATION: M67.912 - Unspecified disorder of synovium and tendon, le... COMPARISON: None. FINDINGS: Mild to moderate degenerative arthritis AC joint with marked downsloping of the acromion with subacro mial spurring. Impingement on the distal supraspinatus. Small amount of subacromial and subdeltoid fl uid. Trace edema at the AC joint. Narrowing of the subacromial space. Mild chronic thinning of the di stal supraspinatus with tendinopathy. Normal infraspinatus. Normal teres minor. Subscapularis tendon appears intact. Biceps tendon appears intact within the bicipital groove. Normal coracoid. Suggestion of a small Hill-Sachs lesion at the level of the coracoid. Recommend correlation with hist ory of dislocation or instability. Small amount of subchondral cystic change and edema at the greater tuberosity. Normal bone marrow signal in the glenoid. Glenoid labrum appears grossly intact. Normal intra-articul ar biceps tendon. MR/MR shoulder LT wo con* [id number] IMPRESSION: 1. Marked downsloping the acromion with impingement of the distal supraspinatu s and narrowing of the subacromial space. Subacromial spurring. 2. Tendinopathy distal supraspinatus with chronic thinning. Rotator cuff is ot herwise normal. 3. Mild to moderate degenerative arthritis AC joint with mild edema. Small perez unt of subacromial subdeltoid fluid. 4. Suggestion of a small Hill-Sachs lesion at the level of the coracoid. Subch ondral cystic change at the greater tuberosity with edema. 5. Normal biceps tendon in the bicipital groove. 6. Glenoid labrum appears grossly intact. No edema in the glenoid. 7. Intra-articular biceps tendon appears intact.
== END 2023-09-19 11:54 | disposition home or self-care (01) ==
LOC: RAD 11:53
PROVIDERS: PCP Nurse Practitioner Family; Visit Provider Nurse Practitioner Family
DX: R25.2 Cramp and spasm (principal); M67.912 Unspecified disorder of synovium and tendon, left shoulder; M75.42 Impingement syndrome of left shoulder; M77.8 Other enthesopathies, not elsewhere classified; M19.012 Primary osteoarthritis, left shoulder; M85.612 Other cyst of bone, left shoulder
CPT/HCPCS: 73221; 80053; 82728; 83550; 83735; 85025

== ENCOUNTER → 2023-10-17 10:34 | Outpatient (BNVA) | payer MEDICAID, SELFPAY | PROVIDERS: PCP Nurse Practitioner Family; Referring Provider Nurse Practitioner Family; Visit Provider Physician Assistant | DX: M67.912 Unspecified disorder of synovium and tendon, left shoulder (principal); R74.8 Abnormal levels of other serum enzymes; M19.012 Primary osteoarthritis, left shoulder; M75.42 Impingement syndrome of left shoulder | CPT/HCPCS: 73030; 80053 ==

== ENCOUNTER 2024-01-11 06:00 | Outpatient (RCR) | payer MEDICAID, SELFPAY | END 2024-02-09 23:59 | disposition home or self-care (01) | LOC: WPT 06:00 | PROVIDERS: Visit Provider Family Medicine | DX: M54.9 Dorsalgia, unspecified (principal); G89.29 Other chronic pain | CPT/HCPCS: 97161 ==

== ENCOUNTER 2024-01-19 08:42 | Outpatient (CLI) | payer MEDICAID, SELFPAY ==
--- NOTE | 2024-01-19 08:44 | XR_ITS ---
WS: [id number] XR lumbar spine 6V w f/e [id number] REASON FOR EXAM: M51.34 - Other intervertebral disc degeneration, thoracic... FINDINGS: Rotatory levoscoliosis of 10 degrees or less. Normal lumbar lordosis. No significant vertebral body abnormality. Intervertebral disc spaces are intact and relatively well preserved. No spondylolysis or spondylolisthesis. Normal flexion and extension views. XR/XR lumbar spine 6V w f/e [id number] IMPRESSION: Rotatory scoliosis of the lumbar spine as above.
--- NOTE | 2024-01-19 08:44 | XR_ITS ---
WS: [id number] XR thoracic spine 3V* [id number] REASON FOR EXAM: S39.012A - Strain of muscle, fascia and tendon of lower b... FINDINGS: Minimal levoscoliosis of the upper most thoracic spine. No significant kyphosis. No vertebral body abnormality. Intervertebral disc spaces are intact and relatively well preserved. XR/XR thoracic spine 3V* [id number] IMPRESSION: Minimal scoliosis as above.
== END 2024-01-19 08:43 | disposition home or self-care (01) ==
LOC: RAD 08:43
PROVIDERS: PCP Nurse Practitioner Family; Visit Provider Nurse Practitioner Family
DX: M41.86 Other forms of scoliosis, lumbar region (principal); S39.012A Strain of muscle, fascia and tendon of lower back, initial encounter; S33.5XXA Sprain of ligaments of lumbar spine, initial encounter; X58.XXXA Exposure to other specified factors, initial encounter
CPT/HCPCS: 72072; 72114

== ENCOUNTER 2024-03-13 13:20 | Emergency (ER) | payer MEDICAID, SELFPAY ==
[2024-03-13 13:38] VITALS: BP 126/85; PULSE 115; RESP 17; TEMP 36.9; O2SAT 97; BMI 19.7
--- NOTE | 2024-03-13 14:24 | PC.NURSE ---
this nurse assumed pt care at 1420 from [facility]
--- NOTE | 2024-03-13 14:25 | USR_ITS ---
PROCEDURE INFORMATION: Exam: US Abdomen, Limited; Right Upper Quadrant Exam date and time: 03/13/2024 4:05 PM Age: 33 years old Clinical indication: Abdominal pain; Localized; Right upper quadrant (ruq); Additional info: Ruq pain, HX of gallstones TECHNIQUE: Imaging protocol: Real time ultrasound of the abdomen with image documentation. Limited exam focused on the right upper quadrant. COMPARISON: US transvaginal [id number] 10/13/2020 10:33 AM FINDINGS: Liver: The liver is normal in echogenicity without evidence of fatty infiltration. No hepatic border nodularity. No hepatic mass or cyst is seen. Liver length estimated at 12.9 cm. Gallbladder: Gallbladder is predominantly contracted. No evidence of gallbladder wall thickening. Gallbladder wall estimated at 0.1 cm in thickness. Biliary ducts: No evidence of intrahepatic biliary ductal dilation. Common bile duct measures approximately 0.6 cm. There is a subtle echogenic rounded area without shadowing within the common bile duct concerning for possible ductal stone. Pancreas: The visualized pancreatic head and body have a normal sonographic appearance. Pancreatic tail is not well seen as is typical by ultrasound. No evidence of pancreatic ductal dilation. Right kidney: The right kidney measures 11 cm in long axis. The right kidney is normal in echotexture without sonographically apparent mass, stone or hydronephrosis. Aorta: Abdominal aorta is normal in caliber. Portal venous: Normal hepatopetal portal venous flow. US/US gall bladder [id number] IMPRESSION: 1. Contracted gallbladder without evidence of cholelithiasis or cholecystitis. 2. Questionable small echogenic rounded nonshadowing area in the common bile duct. Common duct at the upper limits of normal measuring approximately 6 mm in diameter. This could represent a ductal stone. MRCP may help clarify if clinically warranted.
[2024-03-13 14:28] VITALS: BP 126/94; PULSE 102; RESP 16; O2SAT 97
[2024-03-13 14:30] LABS: Basophils % 0.4 %; Eosinophils # 0.1 10^3/uL (0.0-0.8); Eosinophils % 1.4 %; Hematocrit 44.7 % (36-47); Lymphocytes # 2.6 10^3/uL (0.8-4.8); Lymphocytes % 25.2 %; Mean Corpuscular HGB Conc 33.8 g/dL (30-55); Mean Corpuscular Hemoglobin 31.6 pg (27-33); Mean Corpuscular Volume 93.5 fl (85-98); Mean Platelet Volume 10.3 fL (7.4-10.4); Monocytes # 0.6 10^3/uL (0.2-0.9); Monocytes % 5.7 %; Neutrophils % 66.9 %; Nucleated Red Blood Cells % 0 %; Platelet Count 255 10^3/cmm (157-399); Red Blood Count 4.78 10^6/uL (3.85-5.65); Red Cell Distribution Width 11.3 % (12.1-15.1); White Blood Count 10.16 10^3/uL (3.29-11.43)
[2024-03-13 14:35] LABS: Bilirubin Urine Negative (Negative); Blood Urine Negative (Negative); Glucose Urine UA 1+ (Normal); HCG Qualitative Urine. Negative (Negative); Ketones Urine Negative (Negative); Leukocyte Esterase Urine Negative (Negative); Nitrate Urine Negative (Negative); Protein Urine 1+ (Negative); Specific Gravity, Urine 1.025 (1.005-1.030); Urine Appearance Clear (CLEAR); Urine Color Yellow (Yellow); pH Urine 5.5 (5-7)
[2024-03-13 14:40] LABS: Add Urine Microscopic? YES; Bacteria Urine Trace /hpf; Hyaline Casts Urine 0-4 /lpf; RBC Urine 0-2 /hpf (0-2); Squamous Epithelial Cell Urine 0-5 /hpf (0-5); WBC Urine 0-5 /hpf (0-5)
[2024-03-13 14:52] LABS: Alanine Aminotransferase 13 U/L (0-33); Albumin Level 4.1 g/dL (3.5-5.2); Alkaline Phosphatase 78 U/L (35-105); Anion Gap 14.6 (5-19); Aspartate Amino Transferase 16 U/L (0-32); Blood Urea Nitrogen 11 mg/dL (6-20); Calcium 8.5 mg/dL (8.5-10.5); Carbon Dioxide 24 mmol/L (22-29); Chloride 101 mmol/L (98-107); Creatinine Clr Calc Pharmacy 95.9729; Globulin 2.3 g/dL (1.3-4.6); Glomerular Filtration Rate 95.8 mL/min (90-130); Glucose 126 mg/dL (65-115); Lipase 46 U/L (13-60); Osmolality Calculated 283 mOsm/kg (285-295); Potassium 3.6 mmol/L (3.5-5.1); Sodium 136 mmol/L (136-145); Total Bilirubin 0.2 mg/dL (0.15-1.2); Total Protein 6.4 g/dL (6.6-8.7)
[2024-03-13 14:53] LABS: Lactic Sepsis W/Reflex 1.2 mmol/L (0.5-2.2)
--- NOTE | 2024-03-13 14:54 | ED_ITS ---
HPI - Abdominal Pain 2 General: Chief Complaint: Abdominal Pain Stated Complaint: abd pain Time Seen by Provider: 03/13/24 14:15 History of Present Illness: Patient is a 33 yo female that presents with complaints of RUQ pain, N/V and Diarrhea. Onset last night after eating out at a diner. Patient reports had a history of similar symptoms approximately year ago. Was evaluated and found to have gallstones. Patient did not follow-up with primary care or surgeon. Patient also notes abdominal distention and intermittent radiation of pain into the right shoulder. Denies fever, chills, chest pain, shortness of breath, dysuria. Patient has a history that includes bladder fixation and hysterectomy Associated Symptoms: Reports bloating, GI cramping, diarrhea, nausea and vomiting; Denies chills, constipation, dysuria, fever(s), hematochezia and hematuria Related Data Previous Rx's Medication Instructions Recorded ondansetron 4 mg disintegrating 4 mg PO Q8H 4 days #12 tabs 03/13/24 tablet Allergies Allergy/AdvReac Type Severity Reaction Status Date / Time Latex, Natural Rubber Allergy Intermediate sick Verified 03/09/24 12:58 Review of Systems 2 General: Reports: 10 or more systems reviewed and unremarkable except in HPI and below Const: Denies: fever(s), chills, change in appetite, change in weight, fatigue or malaise Card: Denies: chest pain, palpitations, irregular heart rhythm, edema, dyspnea on exertion, orthopnea or leg pain with exertion Resp: Denies: dyspnea, productive cough, non-productive cough, wheezing, stridor or chest congestion GI: Reports: abdominal pain, nausea, vomiting, diarrhea, bloating and GI cramping; Denies: dysphagia, constipation or hematochezia : Denies: flank pain, difficulty voiding, dysuria, urinary frequency, urinary urgency, urinary hesitancy, oliguria or hematuria Musc: Denies: neck pain, back pain, extremity pain, joint pain, joint swelling, joint redness, joint warmth or muscle weakness Neuro: Denies: headache(s), numbness in extremities, weakness in extremities, sensory changes, lack of coordination, difficulty walking, frequent falls, dizziness, confusion, Slurred speech present, difficulty communicating thoughts, seizure-like activity or involuntary movements PFSH ED 2 PFSH: Medical History (Updated 03/13/24 @ 17:25 by JOSELO Barnes) Muscle spasm Chronic back pain Low back pain Lumbar back sprain DDD (degenerative disc disease), lumbosacral DDD (degenerative disc disease), thoracic Back strain Elevated liver enzymes Ingrown left greater toenail Muscle cramps Fatigue Lower respiratory infection Infection of tooth Upper respiratory infection Pelvic pain [place]-Walker grade 3 cystocele Dupuytrens contracture Carpal tunnel syndrome Right hand pain state Hypertension screen Medication management Fatigue Menorrhagia Vitamin D deficiency Cough Environmental and seasonal allergies Surgical History Status post bladder repair Hx of hysterectomy (~11/14/20) Laproscopic assisted vaginal hysterectomy-- Dr. Mahoney at [facility] History of tubal ligation 2015 at [facility] – [place] Dr. Arango Family History Mother Cancer bone cancer Cervical cancer Ovarian cancer Clotting disorder Hypertension Stroke Ovarian cyst Grandfather Cancer Maternal-- cancer spread throughout body Family/Other Ovarian cancer Maternal Aunts x4 Cancer Nephew--appendix cancer Hypertension x1 Maternal Aunt Thyroid disease Maternal Aunt Ovarian cyst x3 Maternal Aunt Grandmother Clotting disorder Maternal Denies family history of Diabetes Hyperlipidemia Chronic kidney disease (CKD) Social History Smoking and tobacco/nicotine status: current every day tobacco/nicotine user Physical Exam 2 Const: COMMON NORMALS: no acute distress, patient oriented x3 and alert G ENERAL APPEARANCE: cooperative ORIENTATION/CONSCIOUSNESS: Yes awake, Yes oriented to person, Yes oriented to place and Yes oriented to time Chest: COMMONS NORMALS: normal inspection of the chest Breast/axilla inspection: Yes no chest deformity, asymmetry, normal contours, no nodules, masses, tenderness Resp: COMMON NORMALS: normal respiratory effort, No retractions, No use of accessory muscles and clear to auscultation bilaterally EFFORT & INSPECTION: Yes able to speak in complete sentences and Yes symmetric chest movement A USCULTATION: clear to auscultation bilaterally Cardio: COMMON NORMALS: regular rate, regular rhythm and Peripheral pulses 2+ throughout RATE: regular rate RHYTHM: regular rhythm PERIPHERAL PULSES: Peripheral pulses 2+ throughout GI: COMMON NORMALS: Normal to inspection, nondistended, normoactive bowel sounds present, Soft to palpation, non-tender and No hepatosplenomegaly present INSPECTION: Yes normal to inspection AUSCULTATION: Yes normoactive bowel sounds PALPATION: Yes Soft to palpation and Yes No hepatosplenomegaly present RECTAL EXAM: deferred Extremity: COMMON NORMALS: normal to inspection GENERAL: Yes normal exam except as noted Neuro: COMMON NORMALS: patient oriented x3 SENSORIUM/ORIENTATION: Yes alert, Yes oriented to person, Yes oriented to place and Yes oriented to time CRANIAL NERVES: Yes CN normal except as noted Psych: COMMON NORMALS: mental status grossly normal, Normal thought process present, cooperative, activity/motor behavior normal, denies homicidal ideation and denies suicidal ideation THOUGHT PROCESS: Normal thought process present Course 2 Vital Signs: Vital signs: Vital Signs Temperature 98.5 F 03/13/24 13:38 Pulse Rate 65 03/13/24 16:40 Respiratory Rate 16 03/13/24 16:40 Blood Pressure 140/83 03/13/24 16:40 Pulse Oximetry 97 03/13/24 16:40 Oxygen Delivery Me thod Room Air 03/13/24 16:40 MDM - Abdominal Pain Medical Decision Making Patient is a 33-year-old female that presents to the emergency department with right upper quadrant abdominal pain that radiates intermittently to the right shoulder. Patient was diagnosed a year ago with gallbladder disease. She elected not to follow-up with the surgeon at that time. Patient states her symptoms began last night after eating out. It worsened today. Here in the emergency department she underwent laboratory evaluation that included CBC, CMP, lipase, urinalysis. She underwent a gallbladder ultrasound. The gallbladder revealed no evidence of cholelithiasis or cholecystitis but it was a contracted gallbladder secondary to eating around noon. There is a questionable small echogenic rounded nonshadowing area in the common bile duct but ultimately if the ultrasound was inconclusive. MRCP was recommended. Her laboratory studies revealed no leukocytosis, anemia, electrolyte abnormality, normal lipase, and normal bilirubin. Urinalysis was unremarkable. I talked with patient as well as my attending about the results. Our current recommendation is that she discharged home and follow-up with primary care and surgery. Patient is agreeable. I will discharge her home with Zofran but no pain medication. Have advised her if her abdominal pain worsen she needs to be reevaluated. She is agreeable All questions answered Lab Data 03/13/24 14:26 03/13/24 14:26 Labs/Radiology: Radiology Impressions Gallbladder Ultrasound 03/13/24 14:25 IMPRESSION: 1. Contracted gallbladder without evidence of cholelithiasis or cholecystitis. 2. Questionable small echogenic rounded nonshadowing area in the common bile duct. Common duct at the upper limits of normal measuring approximately 6 mm in diameter. This could represent a ductal stone. MRCP may help clarify if clinically warranted. Laboratory Results WBC 10.16 10^3/uL (3.29-11.43) 03/13/24 14:26 RBC 4.78 10^6/uL (3.85-5.65) 03/13/24 14:26 Hgb 15.10 g/dL (11.27-16.99) 03/13/24 14:26 Hct 44.7 % (36-47) 03/13/24 14:26 MCV 93.5 fl (85-98) 03/13/24 14:26 MCH 31.6 pg (27-33) 03/13/24 14:26 MCHC 33.8 g/dL (30-55) 03/13/24 14:26 RDW 11.3 % (12.1-15.1) L 03/13/24 14:26 Plt Count 255 10^3/cmm (157-399) 03/13/24 14:26 MPV 10.3 fL (7.4-10.4) 03/13/24 14:26 Neut % (Auto) 66.9 % 03/13/24 14:26 Lymph % (Auto) 25.2 % 03/13/24 14:26 [place] % (Auto) 5.7 % 03/13/24 14:26 Eos % (Auto) 1.4 % 03/13/24 14:26 Baso % (Auto) 0.4 % 03/13/24 14:26 Neut # (Auto) 6.80 10^3/uL (1.8-7.7) 03/13/24 14:26 Lymph # (Auto) 2.6 10^3/uL (0.8-4.8) 03/13/24 14:26 [place] # (Auto) 0.6 10^3/uL (0.2-0.9) 03/13/24 14:26 Eos # (Auto) 0.1 10^3/uL (0.0-0.8) 03/13/24 14:26 Baso # (Auto) 0.0 10^3/uL (0.0-0.1) 03/13/24 14:26 Nucleated RBC % (auto) 0 % 03/13/24 14:26 Nucleated RBCs # 0.0 /100WBC 03/13/24 14:26 Sodium 136 mmol/L (136-145) 03/13/24 14:26 Potassium 3.6 mmol/L (3.5-5.1) 03/13/24 14:26 Chloride 101 mmol/L (98-107) 03/13/24 14:26 Carbon Dioxide 24 mmol/L (22-29) 03/13/24 14:26 Anion Gap 14.6 (5-19) 03/13/24 14:26 BUN 11 mg/dL (6-20) 03/13/24 14:26 Creatinine 0.7 mg/dL (0.5-0.9) 03/13/24 14:26 GFR Calculation 95.8 mL/min (90-130) 03/13/24 14:26 Glucose 126 mg/dL (65-115) H 03/13/24 14:26 Calculated Osmolality 283 mOsm/kg (285-295) L 03/13/24 14:26 Lactic Acid 1.2 mmol/L (0.5-2.2) 03/13/24 14:26 Calcium 8.5 mg/dL (8.5-10.5) 03/13/24 14:26 Total Bilirubin 0.2 mg/dL (0.15-1.2) 03/13/24 14:26 AST 16 U/L (0-32) 03/13/24 14:26 ALT 13 U/L (0-33) 03/13/24 14:26 Alkaline Phosphatase 78 U/L (35-105) 03/13/24 14:26 Total Protein 6.4 g/dL (6.6-8.7) L 03/13/24 14:26 Albumin 4.1 g/dL (3.5-5.2) 03/13/24 14:26 Globulin 2.3 g/dL (1.3-4.6) 03/13/24 14:26 Lipase 46 U/L (13-60) 03/13/24 14:26 HCG, Qual Negative (Negative) 03/13/24 14:18 Urine Color Yellow (Yellow) 03/13/24 14:18 Urine Appearance Clear (CLEAR) 03/13/24 14:18 Urine pH 5.5 (5-7) 03/13/24 14:18 Ur Specific [place] 1.025 (1.005-1.030) 03/13/24 14:18 Urine Protein 1+ (Negative) A 03/13/24 14:18 Urine Glucose (UA) 1+ (Normal) H 03/13/24 14:18 Urine Ketones Negative (Negative) 03/13/24 14:18 Urine Blood Negative (Negative) 03/13/24 14:18 Urine Nitrate Negative (Negative) 03/13/24 14:18 Urine Bilirubin Negative (Negative) 03/13/24 14:18 Urine Urobilinogen 1.0 mg/dL (Negative) 03/13/24 14:18 Ur Leukocyte Esterase Negative (Negative) 03/13/24 14:18 Urine RBC 0-2 /hpf (0-2) 03/13/24 14:18 Urine WBC 0-5 /hpf (0-5) 03/13/24 14:18 Ur Squamous Epith Cells 0-5 /hpf (0-5) 03/13/24 14:18 Amorphous Sediment Not Reportable 03/13/24 14:18 Urine Bacteria Trace /hpf (NONE) 03/13/24 14:18 Hyaline Casts 0-4 /lpf H 03/13/24 14:18 All radiology interpretation(s) finalized by discharge Discharge Plan Discharge Patient Disposition: Home Clinical Impression: Abdominal pain Condition: Stable Prescriptions: New ondansetron 4 mg tablet,disintegrating 4 mg PO Q8H 4 Days Qty: 12 0RF No Action triamcinolone acetonide 40 mg/mL suspension 40 mg IM ONCE Qty: 1 0RF Discharge Orders: Discharge ED (Routine); Ordered 03/13/24 Ordered By: Jadon Norris Referrals: Amor Richey, RETAIL PERFORMANCE COACH [Primary Care Provider] - Discharge Diet: Advance as tolerated and Low Fat Discharge Activity: Resume usual activity Patient Instructions: Abdominal Pain (ED), Pain Management Activity Restrictions/Additional Instructions: Please return to the emergency department for any new, concerning, worsening symptoms Coding Level of Care Code ED Supervisor Throwing Department for Annemarie Garcia
[2024-03-13] MEDS: sodium chloride 0.9% 1,000 ML 999 ML IV (15:00)
[2024-03-13 15:01] VITALS: RESP 16; O2SAT 99
[2024-03-13] MEDS: HYDROmorphone 1 mg/mL INJ 1 mL 0.5 MG IVP (15:01)
[2024-03-13] MEDS: ondansetron 2 mg/ML SDV 2 mL 4 MG IVP (15:01)
[2024-03-13 16:40] VITALS: BP 140/83; PULSE 65; RESP 16; O2SAT 97
[2024-03-13 17:37] VITALS: BP 121/76; PULSE 72; RESP 16; O2SAT 97
== END 2024-03-13 17:36 | disposition home or self-care (01) ==
PROVIDERS: Emergency Provider Nurse Practitioner; PCP Nurse Practitioner Family
DX: R10.9 Unspecified abdominal pain (principal); Z72.0 Tobacco use
CPT/HCPCS: 36415; 76705; 80053; 81001; 81025; 83605; 83690; 85025; 96374; 96375; 99285; J1171; J2405; J7030

== ENCOUNTER 2024-03-22 10:25 | Emergency (ER) | payer MEDICAID, SELFPAY ==
[2024-03-22 10:48] VITALS: BP 128/85; PULSE 92; RESP 18; TEMP 36.8; O2SAT 98; BMI 19.2
[2024-03-22 11:44] LABS: Basophils % 0.3 %; Eosinophils # 0.1 10^3/uL (0.0-0.8); Eosinophils % 0.6 %; Hematocrit 43.1 % (36-47); Lymphocytes # 2.1 10^3/uL (0.8-4.8); Mean Corpuscular HGB Conc 34.3 g/dL (30-55); Mean Corpuscular Hemoglobin 32.4 pg (27-33); Mean Corpuscular Volume 94.3 fl (85-98); Mean Platelet Volume 10.4 fL (7.4-10.4); Monocytes # 0.6 10^3/uL (0.2-0.9); Monocytes % 4.8 %; Nucleated Red Blood Cells % 0 %; Platelet Count 245 10^3/cmm (157-399); Red Blood Count 4.57 10^6/uL (3.85-5.65); Red Cell Distribution Width 11.7 % (12.1-15.1); White Blood Count 11.59 10^3/uL (3.29-11.43)
[2024-03-22 11:59] LABS: HCG, Serum Qual Negative (Negative)
[2024-03-22 12:04] LABS: Alanine Aminotransferase 13 U/L (0-33); Albumin Level 4.3 g/dL (3.5-5.2); Alkaline Phosphatase 70 U/L (35-105); Anion Gap 14.9 (5-19); Aspartate Amino Transferase 17 U/L (0-32); Blood Urea Nitrogen 9 mg/dL (6-20); Calcium 8.5 mg/dL (8.5-10.5); Carbon Dioxide 26 mmol/L (22-29); Chloride 101 mmol/L (98-107); Glomerular Filtration Rate 114.4 mL/min (90-130); Glucose 89 mg/dL (65-115); Lipase 49 U/L (13-60); Osmolality Calculated 284 mOsm/kg (285-295); Potassium 3.9 mmol/L (3.5-5.1); Sodium 138 mmol/L (136-145); Total Bilirubin 0.2 mg/dL (0.15-1.2); Total Protein 6.3 g/dL (6.6-8.7)
--- NOTE | 2024-03-22 12:45 | W.ED.ABDPA2 ---
HPI - Abdominal Pain General: Chief Complaint: Abdominal Pain Stated Complaint: abd pain Time Seen by Provider: 03/22/24 12:45 History of Present Illness: 33-year-old female presents emergency room with abdominal pain. She was seen a week ago and found to have nonacute cholelithiasis. Her liver functions were normal there is no dilation of the common bile duct and ultimately after review we decided to discharge patient home set up for an outpatient MRCP. She returns today complaining of abdominal discomfort. Associated Symptoms: Reports nausea and vomiting; Denies chills, dysuria and fever(s) Related Data Home Medications Medication Instructions Recorded Confirmed acetaminophen 325 mg tablet 325 mg PO QID PRN Pain 03/17/24 03/22/24 (Tylenol) ibuprofen 200 mg tablet 200 mg PO Q6H PRN Pain 03/17/24 03/22/24 Previous Rx's Medication Instructions Recorded amoxicillin 875 mg-potassium 1 tab PO BID 10 days #20 tabs 03/17/24 clavulanate 125 mg tablet meloxicam 7.5 mg tablet 7.5 mg PO DAILY 10 days #10 tabs 03/17/24 ondansetron 8 mg disintegrating 8 mg PO Q8H PRN nausea and 03/17/24 tablet vomiting #20 tabs pantoprazole 40 mg tablet,delayed 20 mg (1/2 x 40 mg) PO DAILY 1 03/17/24 release (Protonix) month #30 tabs hydrocodone 5 mg-acetaminophen 325 1 tab PO Q6H PRN pain #20 tabs 03/22/24 mg tablet promethazine 25 mg tablet 25 mg PO Q6H PRN nausea and 03/22/24 vomiting #20 tabs Allergies Allergy/AdvReac Type Severity Reaction Status Date / Time Latex, Natural Rubber Allergy Intermediate sick Verified 03/22/24 10:56 Review of Systems Const: Denies: fever(s) or chills Card: Denies: chest pain Resp: Denies: dyspnea GI: Reports: abdominal pain, nausea and vomiting : Denies: dysuria, urinary frequency or urinary urgency Musc: Denies: neck pain or back pain Skin/Breast: Denies: rash PFSH ED PFSH: Medical History Gall stones, common bile duct Gall stone in bile duct with infection of gallbladder Muscle spasm Chronic back pain Low back pain Lumbar back sprain DDD (degenerative disc disease), lumbosacral DDD (degenerative disc disease), thoracic Back strain Elevated liver enzymes Ingrown left greater toenail Muscle cramps Fatigue Lower respiratory infection Infection of tooth Upper respiratory infection Pelvic pain [place]-Walker grade 3 cystocele Dupuytrens contracture Carpal tunnel syndrome Right hand pain state Hypertension screen Medication management Fatigue Menorrhagia Vitamin D deficiency Cough Environmental and seasonal allergies Surgical History Status post bladder repair Hx of hysterectomy (~11/14/20) Laproscopic assisted vaginal hysterectomy-- Dr. Mahoney at [facility] History of tubal ligation 2014 at [facility] [place] Arango Family History Mother Cancer bone cancer Cervical cancer Ovarian cancer Clotting disorder Hypertension Stroke Ovarian cyst Grandfather Cancer Maternal-- cancer spread throughout body Family/Other Ovarian cancer Maternal Aunts x4 Cancer Nephew--appendix cancer Hypertension x1 Maternal Aunt Thyroid disease Maternal Aunt Ovarian cyst x3 Maternal Aunt Grandmother Clotting disorder Maternal Denies family history of Diabetes Hyperlipidemia Chronic kidney disease (CKD) Social History Smoking and tobacco/nicotine status: current every day tobacco/nicotine user Physical Exam Const: GENERAL APPEARANCE: cooperative ORIENTATION/CONSCIOUSNESS: Yes awake, Yes oriented to person, Yes oriented to place and Yes oriented to time HENMT: COMMON NORMALS: normocephalic, atraumatic and hearing grossly normal bilaterally HEAD & SCALP: normocephalic and atraumatic Resp: COMMON NORMALS: normal respiratory effort, No retractions, No use of accessory muscles and clear to auscultation bilaterally AUSCULTATION: clear to auscultation bilaterally Cardio: COMMON NORMALS: regular rate, regular rhythm and No murmurs present (Cardio) RATE: regular rate RHYTHM: regular rhythm GI: COMMON NORMALS: Soft to palpation and No hepatosplenomegaly present AUSCULTATION: Yes normoactive bowel sounds PALPATION: Yes Soft to palpation, No Tenderness to palpation present (GI), No Guarding due to palpation present (GI) and Yes No hepatosplenomegaly present Extremity: COMMON NORMALS: normal to inspection, capillary refill normal, no clubbing, cyanosis or edema, no calf tenderness and no pedal edema Neuro: SENSORIUM/ORIENTATION: Yes oriented to person, Yes oriented to place and Yes oriented to time Skin: COMMON NORMALS: no rashes or lesions noted GENERAL SKIN EXAM: no rashes or lesions noted Course Vital Signs: Vital signs: Vital Signs Temperature 98.2 F 03/22/24 10:48 Pulse Rate 69 03/22/24 17:23 Respiratory Rate 16 03/22/24 16:50 Blood Pressure 107/76 03/22/24 17:23 Pulse Oximetry 97 03/22/24 17:23 Oxygen Delivery Me thod Room Air 03/22/24 16:53 MDM - Abdominal Pain Medical Decision Making Labs and imaging reviewed slight elevation of white count no left shift. We will discharge patient home and consult with Dr. Archer he does not feel she needs to be emergently admitted. Discharged home gave advice and counseling on diet gave Phenergan and hydrocodone to use as needed. Return if has worsening symptoms. Medical Records I reviewed the patient's medical records. Lab Data I reviewed the patient's lab results. 03/22/24 11:28 03/22/24 11:28 Labs/Radiology: Radiology Impressions Gallbladder Ultrasound 03/22/24 13:00 IMPRESSION: Normal right upper quadrant ultrasound. Common bile duct is slightly decreased in size since the prior study of 03/13/2024. No debris noted within the common bile duct. Laboratory Results WBC 11.59 10^3/uL (3.29-11.43) H 03/22/24 11: RBC 4.57 10^6/uL (3.85-5.65) 03/22/24 11:28 Hgb 14.80 g/dL (11.27-16.99) 03/22/24 11:28 Hct 43.1 % (36-47) 03/22/24 11:28 MCV 94.3 fl (85-98) 03/22/24 11:28 MCH 32.4 pg (27-33) 03/22/24 11: MCHC 34.3 g/dL (30-55) 03/22/24 11: RDW 11.7 % (12.1-15.1) L 03/22/24 11:28 Plt Count 245 10^3/cmm (157-399) 03/22/24 11: MPV 10.4 fL (7.4-10.4) 03/22/24 11: Neut % (Auto) 76.0 % 03/22/24 11:28 Lymph % (Auto) 18.0 % 03/22/24 11:28 [place] % (Auto) 4.8 % 03/22/24 11:28 Eos % (Auto) 0.6 % 03/22/24 11:28 Baso % (Auto) 0.3 % 03/22/24 11:28 Neut # (Auto) 8.80 10^3/uL (1.8-7.7) H 03/22/24 11: Lymph # (Auto) 2.1 10^3/uL (0.8-4.8) 03/22/24 11: [place] # (Auto) 0.6 10^3/uL (0.2-0.9) 03/22/24 11: Eos # (Auto) 0.1 10^3/uL (0.0-0.8) 03/22/24 11:28 Baso # (Auto) 0.0 10^3/uL (0.0-0.1) 03/22/24 11: Nucleated RBC % (auto) 0 % 03/22/24 11: Nucleated RBCs # 0.0 /100WBC 03/22/24 11: Sodium 138 mmol/L (136-145) 03/22/24 11:28 Potassium 3.9 mmol/L (3.5-5.1) 03/22/24 11: Chloride 101 mmol/L (98-107) 03/22/24 11:28 Carbon Dioxide 26 mmol/L (22-29) 03/22/24 11:28 Anion Gap 14.9 (5-19) 03/22/24 11:28 BUN 9 mg/dL (6-20) 03/22/24 11:28 Creatinine 0.6 mg/dL (0.5-0.9) 03/22/24 11:28 GFR Calculation 114.4 mL/min (90-130) 03/22/24 11:28 Glucose 89 mg/dL (65-115) 03/22/24 11:28 Calculated Osmolality 284 mOsm/kg (285-295) L 03/22/24 11:28 Calcium 8.5 mg/dL (8.5-10.5) 03/22/24 11:28 Total Bilirubin 0.2 mg/dL (0.15-1.2) 03/22/24 11:28 AST 17 U/L (0-32) 03/22/24 11:28 ALT 13 U/L (0-33) 03/22/24 11:28 Alkaline Phosphatase 70 U/L (35-105) 03/22/24 11:28 Total Protein 6.3 g/dL (6.6-8.7) L 03/22/24 11:28 Albumin 4.3 g/dL (3.5-5.2) 03/22/24 11:28 Globulin 2.0 g/dL (1.3-4.6) 03/22/24 11:28 Lipase 49 U/L (13-60) 03/22/24 11:28 HCG, Qual Negative (Negative) 03/22/24 11:28 All radiology interpretation(s) finalized by discharge Discharge Plan Discharge Patient Disposition: Home Clinical Impression: Biliary colic Condition: Stable Prescriptions: New hydrocodone-acetaminophen 5-325 mg tablet 1 tab PO Q6H PRN (Reason: pain) Qty: 20 0RF promethazine 25 mg tablet 25 mg PO Q6H PRN (Reason: nausea and vomiting) Qty: 20 0RF No Action triamcinolone acetonide 40 mg/mL suspension 40 mg IM ONCE Qty: 1 0RF acetaminophen [Tylenol] 325 mg tablet 325 mg PO QID PRN (Reason: Pain) ibuprofen 200 mg tablet 200 mg PO Q6H PRN (Reason: Pain) ondansetron 8 mg tablet,disintegrating 8 mg PO Q8H PRN (Reason: nausea and vomiting) Qty: 20 0RF meloxicam 7.5 mg tablet 7.5 mg PO DAILY 10 Days Qty: 10 0RF pantoprazole [Protonix] 40 mg tablet,delayed release (DR/EC) 20 mg PO DAILY 30 Days Qty: 30 6RF amoxicillin-pot clavulanate 875-125 mg tablet 1 tab PO BID 10 Days Qty: 20 0RF Discharge Orders: Discharge ED (Routine); Ordered 03/22/24 Ordered By: Solomon Felipe Referrals: Amor Richey FNP [Primary Care Provider] - Discharge Diet: As Directed Discharge Activity: Increase activity as tolerated Patient Instructions: Biliary Colic (ED), Low Fat Diet (ED), Abdominal Pain (ED), Opioid Safety, Pain Management Activity Restrictions/Additional Instructions: Thank you for choosing [facility] for your healthcare needs today. It is very important that you follow up as instructed or that you return to the Emergency Department should you have concerns or if your condition changes or worsens in any way. You were seen in the emergency room with right upper quadrant abdominal pain suggestive of biliary colic. Gallbladder ultrasound did not show any dilation or common bile duct gallbladder itself looked normal. Based on your symptoms suspect you do have some biliary dyskinesia that is causing your symptoms. Your white count was not significantly elevated your liver functions were normal. Will discharge you home recommend a very bland diet with no fats dairy products red meats or citrus fruits you can eat bananas and Quique simple carbohydrates. You should follow-up with surgery as planned. If you have significant worsening of your symptoms return to the emergency room. You can use the pain and nausea medications as needed. Coding Level of Care Code ED Raimann Machine Operator for Annemarie Garcia
--- NOTE | 2024-03-22 13:00 | US_ITS ---
WS: [id number] RIGHT UPPER QUADRANT ULTRASOUND HISTORY: cholelithiasis COMPARISON: 03/13/2024 Liver: 17.0 cm in length. Normal size liver and echogenicity. No bile duct dilatation or mass. Portal Vein: Normal hepatopetal flow with monophasic waveform. Gallbladder: Normally distended gallbladder with no stones or wall thickening. CBD: 0.5 cm Pancreas: Normal size and echogenicity. Right kidney: 11.4 cm in length. Normal size and echogenicity. No hydronephrosis or mass. Aorta and IVC: Unremarkable abdominal aorta and IVC. No ascites. US/US gall bladder 71828 IMPRESSION: Normal right upper quadrant ultrasound. Common bile duct is slightly decreased in size since the prior study of 03/13/2024. No debris noted within the common b ile duct.
[2024-03-22 13:39] VITALS: BP 106/79; PULSE 78; O2SAT 99
--- NOTE | 2024-03-22 15:55 | PC.NURSE ---
1440 IO placed left tibia 1443 Etomidate 20mg IVP 1443 Succs 100mg IVP 1444 22 at teeth - Intubated Per Dr. Felipe, order and admin Propofol Drip.
--- NOTE | 2024-03-22 15:57 | PC.NURSE ---
Succs 100mg (remainder in vial) wasted with Talia Rojas RN.
--- NOTE | 2024-03-22 16:15 | P.CONIM_ITS ---
Providers/Reason For Consult 2 Consulting Physician/Specialty*: Dr. Bradly Archer, DO/General Surgery Reason for Consult*: Abdominal pain Primary Care Provider: Amor Richey History of Present Illness History of Present Illness Viola Beck is a 33 year old female who presented to the hospital with recurrent right upper quadrant abdominal pain rating to her back along with nausea and vomiting after eating. She was previously found to have symptomatic cholelithiasis with a possible common bile duct stone. Ultrasound done this time does not show any more stones in her gallbladder and a non-dilated common bile duct. She does not have any gallbladder wall thickening or pericholecystic fluid either. Palpation and eating makes her pain worse. Nothing EXTR pain better. She denies any hematemesis, hematochezia and/or melena Review of Systems 2 General: Reports: 10 or more systems reviewed and unremarkable except in HPI and below Medications/Allergies Home Medications Medication Instructions Recorded Confirmed Last Taken Type acetaminophen 325 mg tablet 325 mg PO QID PRN Pain 03/17/24 03/22/24 03/21/24 History (Tylenol) amoxicillin 875 mg-potassium 1 tab PO BID 10 days #20 tabs 03/17/24 03/22/24 03/21/24 Rx clavulanate 125 mg tablet ibuprofen 200 mg tablet 200 mg PO Q6H PRN Pain 03/17/24 03/22/24 03/21/24 History meloxicam 7.5 mg tablet 7.5 mg PO DAILY 10 days #10 tabs 03/17/24 03/22/24 03/21/24 Rx ondansetron 8 mg disintegrating 8 mg PO Q8H PRN nausea and 03/17/24 03/22/24 03/21/24 Rx tablet vomiting #20 tabs pantoprazole 40 mg tablet,delayed 20 mg (1/2 x 40 mg) PO DAILY 1 03/17/24 03/22/24 03/21/24 Rx release (Protonix) month #30 tabs hydrocodone 5 mg-acetaminophen 325 1 tab PO Q6H PRN pain #20 tabs 03/22/24 Unknown Rx mg tablet promethazine 25 mg tablet 25 mg PO Q6H PRN nausea and 03/22/24 Unknown Rx vomiting #20 tabs Allergies Allergy/AdvReac Type Severity Reaction Status Date / Time Latex, Natural Rubber Allergy Intermediate sick Verified 03/22/24 10:56 PFSH Acute 2 PFSH: Medical History Gall stones, common bile duct Gall stone in bile duct with infection of gallbladder Muscle spasm Chronic back pain Low back pain Lumbar back sprain DDD (degenerative disc disease), lumbosacral DDD (degenerative disc disease), thoracic Back strain Elevated liver enzymes Ingrown left greater toenail Muscle cramps Fatigue Lower respiratory infection Infection of tooth Upper respiratory infection Pelvic pain [place]-Walker grade 3 cystocele Dupuytrens contracture Carpal tunnel syndrome Right hand pain state Hypertension screen Medication management Fatigue Menorrhagia Vitamin D deficiency Cough Environmental and seasonal allergies Surgical History Status post bladder repair Hx of hysterectomy (~11/14/20) Laproscopic assisted vaginal hyste[facility]-- Dr. Mahoney at [facility] History of tubal ligation 2015 at [facility] [place]. Arango Family History Mother Cancer bone cancer Cervical cancer Ovarian cancer Clotting disorder Hypertension Stroke Ovarian cyst Grandfather Cancer Maternal-- cancer spread throughout body Family/Other Ovarian cancer Maternal Aunts x4 Cancer Nephew--appendix cancer Hypertension x1 Maternal Aunt Thyroid disease Maternal Aunt Ovarian cyst x3 Maternal Aunt Grandmother Clotting disorder Maternal Denies family history of Diabetes Hyperlipidemia Chronic kidney disease (CKD) Social History Smoking and tobacco/nicotine status: current every day tobacco/nicotine user Vitals/I&O/Wt Last Vital Signs Temp 98.2 F 03/22/24 10:48 Pulse 69 03/22/24 17:23 Resp 16 03/22/24 16:50 BP 107/76 03/22/24 17:23 Pulse Ox 97 03/22/24 17:23 O2 Del Method Room Air 03/22/24 16:53 Weight last 48 hrs Weight 112 lb Physical Exam 2 Narrative: General : Patient is well developed , no acute distress, oriented x3 Head : Normal cephalic, a-traumatic. Ears : Pinnae and external canal are normal. Hearing is normal. Eyes : PERRLA, Sclera and injection are normal. No conjunctival discharge. Nose : Mucous membranes are without erythema. Throat : buccal mucosa is normal, gums are without significant recession or hypertrophy. Lungs : Equal chest rise bilaterally, no use of accessory muscles, trachea is midline. Cor : Rate and rhythm are normal. Abdomen : Soft, ND, tender right upper quadrant, negative Fritz sign, no g/r/m Extremities : No edema, no cyanosis or clubbing, dorsalis pedis pulses are present bilaterally, non-tender to palpation of calves. Upper extremities are normal bilaterally. Back : non-tender to palpation, no CVA tenderness. Neuro : CN II - XII intact, Upper and lower extremities have equal and full strength Data 03/22/24 11:28 03/22/24 11:28 A&P Assessment and plan (1) Symptomatic cholelithiasis: (2) Biliary colic: Plan Okay for discharge home Follow-up in office to schedule cholecystectomy. She does not need MRCP since this ultrasound was definitive for no common bile duct dilation. She was previously established with Dr. Rico Coding Level of Care Code 00410 Diagnoses Symptomatic cholelithiasis K80.20 Biliary colic K80.50
[2024-03-22] MEDS: ondansetron 2 mg/ML SDV 2 mL 4 MG IVP (16:48)
[2024-03-22 16:50] VITALS: RESP 16
[2024-03-22] MEDS: morphine 4 mg/mL SDV 1 mL IVP (16:50)
[2024-03-22] MEDS: ketorolac 30 mg/mL INJ IVP (16:51)
[2024-03-22 16:53] VITALS: BP 107/76; PULSE 69; O2SAT 97
[2024-03-22 17:23] VITALS: BP 107/76; PULSE 69; O2SAT 97
== END 2024-03-22 17:25 | disposition home or self-care (01) ==
PROVIDERS: Physician Assistant; Emergency Provider Family Medicine; PCP Nurse Practitioner Family
DX: K80.50 Calculus of bile duct without cholangitis or cholecystitis without obstruction (principal); Z72.0 Tobacco use
CPT/HCPCS: 36415; 76705; 80053; 83690; 84703; 85025; 96374; 96375; 99285; J1885; J2270; J2405

== ENCOUNTER 2024-03-30 08:51 | Day surgery (SDC) | payer MEDICAID, SELFPAY ==
[2024-03-30] VITALS (10 sets, daily range): BP systolic 103–121; BP diastolic 56–87; PULSE 65–89; RESP 16–20; TEMP 36.3–36.4; O2SAT 97–100
[2024-03-30] MEDS: sodium chloride 0.9% 1,000 ML 30 ML IV (09:20)
[2024-03-30] MEDS: scopolamine 1.5 Patch 1 PATCH TRANSDERMA (09:21)
--- NOTE | 2024-03-30 09:43 | W.PM.OPSUD ---
Surgery/Procedure H&P Update DATE OF PROCEDURE: March 30, 2024 DATE H&P PERFORMED: 03/25/24 H&P UPDATE INFORMATION: I have reviewed H&P completed within last 30 days, I have examined patient prior to procedure and No changes to prior documentation PLANNED PROCEDURE: Operation Date: 03/30/24 10:55 Proposed Procedures p Laparoscopic Cholecystectomy - 09075, K80.42,K80.20(Not Applicable) - Bradly Archer, DO
--- NOTE | 2024-03-30 10:46 | ANES.PREANE2 ---
Pre-Anesthetic Assessment Height/Weight: Height 1.63 m Weight 51.256 kg Temp Pulse Resp BP Pulse Ox O2 Del Method 97.6 F 85 16 113/74 99 Room Air 03/30/24 09:08 03/30/24 09:08 03/30/24 09:08 03/30/24 09:08 03/30/24 09:08 03/30/24 09:08 Operation Date: 03/30/24 10:55 Proposed Procedures p Laparoscopic Cholecystectomy - 79465, K80.42,K80.20(Not Applicable) - Bradly Archer DO Familial anesthetic complications: none Was Beta Delon taken within 24 hours: N/A Was Clonidine taken within 24 hours: N/A Last intake: Intake Last Liquid Date 03/29/24 Last Liquid Time 00:00 Last Solid Date 03/29/24 Last Solid Time 15:00 Social No alcohol and No tobacco Exam alert, oriented x 3, clear to auscultation bilaterally and regular rate & rhythm Airway Mallampati: Class I Dentition: false CV/HEM Hypertension GI Gastroesophageal Reflux Disease Anesthetic Plan ASA status: 2 Anesthesia: General Risk of > 500 ml blood loss (7ml/kg in children): No Medications/Allergies Home Medications Medication Instructions Recorded Confirmed Last Taken Type acetaminophen 325 mg tablet 325 mg PO QID PRN Pain 03/17/24 03/30/24 03/29/24 History (Tylenol) ibuprofen 200 mg tablet 200 mg PO Q6H PRN Pain 03/17/24 03/30/24 03/21/24 History meloxicam 7.5 mg tablet 7.5 mg PO DAILY 10 days #10 tabs 03/17/24 03/30/24 03/29/24 Rx pantoprazole 40 mg tablet,delayed 20 mg (1/2 x 40 mg) PO DAILY 1 03/17/24 03/30/24 03/29/24 Rx release (Protonix) month #30 tabs hydrocodone 5 mg-acetaminophen 325 1 tab PO Q6H PRN pain #20 tabs 03/22/24 03/30/24 03/29/24 Rx mg tablet promethazine 25 mg tablet 25 mg PO Q6H PRN nausea and 03/22/24 03/30/24 03/29/24 Rx vomiting #20 tabs Allergies Allergy/AdvReac Type Severity Reaction Status Date / Time Latex, Natural Rubber Allergy Intermediate sick Verified 03/22/24 10:56 Current Medications Generic Name Dose Route Start Last Admin Trade Name Amanda PRN Reason Stop Dose Admin Sodium Chloride 1,000 mls @ 30 mls/hr 03/30/24 09:00 03/30/24 09:20 Sodium Chloride 0.9% IV 03/31/24 08:59 30 mls/hr .Q24H KE Administration PFSH Anesthesia Medical History Gall stones, common bile duct Gall stone in bile duct with infection of gallbladder Muscle spasm Chronic back pain Low back pain Lumbar back sprain DDD (degenerative disc disease), lumbosacral DDD (degenerative disc disease), thoracic Back strain Elevated liver enzymes Ingrown left greater toenail Muscle cramps Fatigue Lower respiratory infection Infection of tooth Upper respiratory infection Pelvic pain [place]-Walker grade 3 cystocele Dupuytrens contracture Carpal tunnel syndrome Right hand pain state Hypertension screen Medication management Fatigue Menorrhagia Vitamin D deficiency Cough Environmental and seasonal allergies Surgical History Status post bladder repair Hx of hysterectomy (~11/14/20) Laproscopic assisted vaginal hysterectomy-- Dr. Mahoney at [facility] History of tubal ligation 2015 at [facility] [place] Dr. Arango Family History Mother Cancer bone cancer Cervical cancer Ovarian cancer Clotting disorder Hypertension Stroke Ovarian cyst Grandfather Cancer Maternal-- cancer spread throughout body Family/Other Ovarian cancer Maternal Aunts x4 Cancer Nephew--appendix cancer Hypertension x1 Maternal Aunt Thyroid disease Maternal Aunt Ovarian cyst x3 Maternal Aunt Grandmother Clotting disorder Maternal Denies family history of Diabetes Hyperlipidemia Chronic kidney disease (CKD) Social History Smoking and tobacco/nicotine status: current every day tobacco/nicotine user Data Anesthesia Cardiac Studies: No Data to Display
[2024-03-30] MEDS: ceFAZolin 2,000 mg SDV 2000 MG IVP (12:52)
[2024-03-30] MEDS: lidocaine-epi 2% PF 1:200,000 20 mL SDV XX (13:08)
--- NOTE | 2024-03-30 13:44 | P.OP_ITS ---
Operative Report Date of procedure: March 30, 2024 Surgeon: Bradly Archer DO Brief History: This very pleasant 33-year-old female who presented with abdominal pain. She was diagnosed with symptomatic cholelithiasis. Laparoscopic cholecystectomy was indicated. The risks and benefits were explained and documented. Procedure: Preoperative diagnosis: Symptomatic cholelithiasis Postoperative diagnosis: Same Procedure performed: Laparoscopic cholecystectomy Surgeon: Dr. Bradly Archer DO Estimated blood loss: 5 mL Specimens: Gallbladder to pathology Complications: None apparent Description of procedure: Patient was wheeled into the operative room and placed on the OR table in a supine position. Abdomen was inspected prepped and draped in usual sterile fashion. Time-out was performed and all present were in agreement. A 15 blade scalp was used to make a stab incision in the left upper quadrant and intra- abdominal insufflation was achieved using a Veress needle. After localizing the tissue incisions were made and a 5 millimeter trocar was placed into the umbilicus as well as 2 in the right upper quadrant. A 12 millimeter trocar was placed in the epigastrium. Gallbladder was grasped and elevated. The triangle of Calot was carefully dissected using blunt dissection and electrocautery until the triangle of [place]ot clearly identified. The cystic duct was clipped proximally and double clipped distally. The duct was then ligated proximally. The cystic artery was doubly clipped and ligated. The gallbladder was then removed from the liver bed using electrocautery. The gallbladder was removed from the abdomen using an Endo-Catch bag through the epigastric incision. The liver bed was inspected and no bleeding was seen. The abdomen was irrigated and suctioned. All ports removed. Skin was washed and dried. Incisions were closed with 4-0 Monocryl in a subcuticular interrupted fashion. Skin glue was applied. Patient tolerated the procedure well.
[2024-03-30] MEDS: HYDROmorphone 1 mg/mL INJ 1 mL 0.5 MG IVP (13:50)
[2024-03-30] MEDS: HYDROcodone-acetaminophen 7.5-325 mg Tablet 1 TAB PO (14:20)
--- NOTE | 2024-03-30 14:45 | ANE.PACU2 ---
Inpatient post-anesthesia follow up: Airway intact: Yes Vital signs: Temperature 97.3 F Pulse Rate 72 Respiratory Rate 18 Blood Pressure 114/87 Pulse Oximetry 99 Oxygen Delivery Me thod Room Air Oxygen Flow Rate 8 Fraction of Inspir ed Oxygen Hydration adequate: Yes Nausea and vomiting: No Pain level: 1 Mental status: Baseline
== END 2024-03-30 14:48 | disposition home or self-care (01) ==
PROVIDERS: PCP Nurse Practitioner Family; Visit Provider Surgery
PROC: 0FT44ZZ Resection of Gallbladder, Percutaneous Endoscopic Approach (ICD-10-PCS; CPT 47562; principal; 2024-03-30 10:45)
DX: K81.1 Chronic cholecystitis (principal); I10 Essential (primary) hypertension; K21.9 Gastro-esophageal reflux disease without esophagitis; F17.200 Nicotine dependence, unspecified, uncomplicated
CPT/HCPCS: 47562; 88304; J0690; J1100; J1171; J1885; J2250; J2405; J2704; J3010; J3490; J7030

== ENCOUNTER → 2024-04-21 09:24 | Outpatient (BNVA) | payer MEDICAID, SELFPAY | PROVIDERS: PCP Nurse Practitioner Family; Visit Provider Nurse Practitioner Family | DX: R07.81 Pleurodynia (principal) | CPT/HCPCS: 71046 ==

== ENCOUNTER → 2024-06-15 16:42 | Outpatient (BNVA) | payer MEDICAID, SELFPAY | PROVIDERS: PCP Nurse Practitioner Family; Visit Provider Nurse Practitioner Family | DX: E55.9 Vitamin D deficiency, unspecified (principal); R53.83 Other fatigue; Z79.899 Other long term (current) drug therapy; L65.9 Nonscarring hair loss, unspecified; D64.9 Anemia, unspecified | CPT/HCPCS: 80053; 80061; 82306; 83036; 83550; 83921; 84439; 84443; 85025 ==

== ENCOUNTER 2024-10-08 16:30 | Emergency (ER) | payer MEDICAID, SELFPAY ==
--- NOTE | 2024-10-08 16:33 | XRR_ITS ---
PROCEDURE INFORMATION: Exam: XR Left Shoulder Exam date and time: 10/08/2024 4:40 PM Age: 34 years old Clinical indication: Injury or trauma; Blunt trauma (contusions or hematomas); Injury details: PT states she has had a previous left shoulder injury but over the last couple days had fallen on her left shoulder and also had a heavy object fall on left arm. PT complains of pain in shoulder. PT is scheduled to see ortho next week. TECHNIQUE: Imaging protocol: Radiologic exam of the left shoulder. Views: 2 or more views. COMPARISON: CR XR shoulder LT min 2V* [id number] 10/17/2023 10:35 AM FINDINGS: Bones/joints: There is normal bony alignment. No acute fracture is detected. Joint spaces are preserved. Soft tissues: There is mild left apical pleural thickening, similar in appearance compared to the prior study. No significant pneumothorax is seen. XR/XR shoulder LT min 2V* [id number] IMPRESSION: No acute findings.
[2024-10-08 16:34] VITALS: BP 133/88; PULSE 112; RESP 17; TEMP 36.7; O2SAT 98; BMI 19.7
--- NOTE | 2024-10-08 16:44 | W.ED.UPPEXIN ---
HPI - Extremity Injury (Upper) General: Chief Complaint: Extremity Injury, Upper Stated Complaint: left shoulder injury Time Seen by Provider: 10/08/24 16:34 Source: patient Mode of arrival: ambulatory Limitations: no limitations History of Present Illness: Patient is a 34-year-old female here for evaluation of left shoulder pain. Patient has had a longstanding history of left shoulder pain. Last year she underwent MRI imaging of the left shoulder showing: Over the past month MR/MR shoulder LT wo con* [id number] IMPRESSION: 1. Marked downsloping the acromion with impingement of the distal supraspinatus and narrowing of the subacromial space. Subacromial spurring. 2. Tendinopathy distal supraspinatus with chronic thinning. Rotator cuff is otherwise normal. 3. Mild to moderate degenerative arthritis AC joint with mild edema. Small amount of subacromial subdeltoid fluid. 4. Suggestion of a small Hill-Sachs lesion at the level of the coracoid. Subchondral cystic change at the greater tuberosity with edema. 5. Normal biceps tendon in the bicipital groove. 6. Glenoid labrum appears grossly intact. No edema in the glenoid. 7. Intra-articular biceps tendon appears intact. Over the past month she has been seen twice for her left shoulder. She does have an upcoming appointment with orthopedics scheduled for 10/12. She states she is here today because a few days ago something fell onto her arm and pulled her left shoulder and is now having worsening pain. complaint: injury to: left and shoulder Onset (ago): month(s) Other Extremity Injury: Left: shoulder Other injuries: none Relieving factors: immobilization Exacerbating factors: movement of extremity Context: fall Associated symptoms: Reports no associated symptoms; Denies neck pain or weakness in extremities Related Data Home Medications ?Medication ?Instructions ?Recorded ?Confirmed acetaminophen 325 mg tablet 325 mg PO QID PRN Pain 03/17/24 09/10/24 (Tylenol) ibuprofen 200 mg tablet 200 mg PO Q6H PRN Pain 03/17/24 09/10/24 Previous Rx's ?Medication ?Instructions ?Recorded meloxicam 7.5 mg tablet 7.5 mg PO DAILY 10 days #10 tabs 03/17/24 Held on 03/30/24. Instructions: Resume on 04/01/24. pantoprazole 40 mg tablet,delayed 20 mg (1/2 x 40 mg) PO DAILY 1 03/17/24 release (Protonix) month #30 tabs docusate sodium 100 mg capsule 100 mg PO BID #14 caps 03/30/24 (Colace) ondansetron HCl 4 mg tablet 4 mg PO Q8H PRN nausea and 07/13/24 vomiting #10 tabs fluoxetine 20 mg capsule (Prozac) 20 mg PO DAILY 30 days #30 caps 08/11/24 celecoxib 100 mg capsule (Celebrex) 100 mg PO BID #60 caps 09/07/24 prednisone 20 mg tablet 20 mg PO DAILY #20 tabs 09/07/24 tramadol 50 mg tablet 50 mg PO BID PRN pain #10 tabs 10/08/24 Allergies Allergy/AdvReac Type Severity Reaction Status Date / Time Latex, Natural Rubber Allergy Intermediate sick Verified 09/10/24 08:20 Review of Systems Musc: Reports: joint pain (L shoulder) and limited range of motion (L shoulder); Denies: neck pain, back pain, extremity pain, extremity swelling, joint swelling, joint redness, joint warmth or joint stiffness Neuro: Denies: headache(s), numbness in extremities, weakness in extremities or sensory changes PFSH ED PFSH: Medical History Left shoulder pain Bipolar depression Rotator cuff impingement syndrome of left shoulder Impingement syndrome, shoulder, left Anemia Hair loss Gall stones, common bile duct Gall stone in bile duct with infection of gallbladder Muscle spasm Chronic back pain Low back pain Lumbar back sprain DDD (degenerative disc disease), lumbosacral DDD (degenerative disc disease), thoracic Back strain Elevated liver enzymes Ingrown left greater toenail Muscle cramps Fatigue Lower respiratory infection Infection of tooth Upper respiratory infection Pelvic pain [place]-Walker grade 3 cystocele Dupuytrens contracture Carpal tunnel syndrome Right hand pain state Hypertension screen Medication management Fatigue Menorrhagia Vitamin D deficiency Cough Environmental and seasonal allergies Surgical History History of laparoscopic cholecystectomy Status post bladder repair Hx of hysterectomy (~11/14/20) Laproscopic assisted vaginal hysterectomy-- Dr. Mahoney at [facility] History of tubal ligation 2014 at [facility] [place] Dr. Arango Family History Mother Cancer bone cancer Cervical cancer Ovarian cancer Clotting disorder Hypertension Stroke Ovarian cyst Grandfather Cancer Maternal-- cancer spread throughout body Family/Other Ovarian cancer Maternal Aunts x4 Cancer Nephew--appendix cancer Hypertension x1 Maternal Aunt Thyroid disease Maternal Aunt Ovarian cyst x3 Maternal Aunt Grandmother Clotting disorder Maternal Denies family history of Diabetes Hyperlipidemia Chronic kidney disease (CKD) Social History Smoking and tobacco/nicotine status: current every day tobacco/nicotine user Physical Exam Const: COMMON NORMALS: no acute distress, average body habitus, no limitations, healthy appearing, alert and well nourished Extremity: COMMON NORMALS: capillary refill normal GENERAL: Yes normal exam except as noted LEFT UPPER EXTREMITY: Yes shoulder joint Left shoulder joint: Yes inspection (normal gross inspection), Yes ROM (limited due to discomfort) and Yes neurovascular exam (normal) Neuro: COMMON NORMALS: moves all extremities, no focal motor deficits and no sensory deficits noted SENSORIUM/ORIENTATION: Yes alert Course Vital Signs: Vital signs: Vital Signs Temperature 98.1 F 10/08/24 16:34 Pulse Rate 112 H 10/08/24 16:34 Respiratory Rate 17 10/08/24 16:34 Blood Pressure 133/88 10/08/24 16:34 Pulse Oximetry 98 10/08/24 16:34 Oxygen Delivery Me thod Room Air 10/08/24 16:34 MDM - Extremity Injury (Upper) Medical Decision Making XR imaging of the left shoulder is unremarkable. She has plan for follow-up with Dr. Lee on 10/12. She will be provided via medications here prior to discharge. Requesting a refill on her tramadol to last her until this appointment which will be provided. Recommend she continue her OTC anti-inflammatories as well as ice. XR interpretation done by ED provider, pending radiology final review Discharge Plan Discharge Patient Disposition: Home Clinical Impression: Pain in left shoulder Condition: Stable Prescriptions: Continued tramadol 50 mg tablet 50 mg PO BID PRN (Reason: pain) Qty: 10 0RF No Action fluoxetine [Prozac] 20 mg capsule 20 mg PO DAILY 30 Days Qty: 30 1RF prednisone 20 mg tablet 20 mg PO DAILY Qty: 20 0RF Rx Instructions: 3 tabs a day for 3 days then 2 tabs a day for 3 days then 1 tab a day for 5 days celecoxib [Celebrex] 100 mg capsule 100 mg PO BID Qty: 60 3RF acetaminophen [Tylenol] 325 mg tablet 325 mg PO QID PRN (Reason: Pain) ibuprofen 200 mg tablet 200 mg PO Q6H PRN (Reason: Pain) meloxicam 7.5 mg tablet 7.5 mg PO DAILY 10 Days Qty: 10 0RF pantoprazole [Protonix] 40 mg tablet,delayed release (DR/EC) 20 mg PO DAILY 30 Days Qty: 30 6RF ondansetron HCl 4 mg tablet 4 mg PO Q8H PRN (Reason: nausea and vomiting) Qty: 10 0RF docusate sodium [Colace] 100 mg capsule 100 mg PO BID Qty: 14 0RF Discharge Orders: Discharge ED (Routine); Ordered 10/08/24 Ordered By: Ivonne Saab Referrals: HUA Berman, [facility] [Primary Care Provider, Family Practice] Activity Restrictions/Additional Instructions: X-rays of your left shoulder today were unremarkable. Please plan on follow-up with Dr. Lee on 10/12 as scheduled. You were given IM medications prior to discharge. Will give you a small amount of tramadol to last you until orthopedic follow-up next week. Print Language: Cymro Coding Level of Care Code ED Control Panel Operator Crude Unit for Annemarie Garcia
[2024-10-08] MEDS: methylPREDNISolone sod succ 125 mg/2 mL INJ 60 MG IM (17:03)
[2024-10-08] MEDS: ketorolac 60 mg/2 mL INJ IM (17:03)
[2024-10-08] MEDS: morphine 4 mg/mL SDV 1 mL IM (17:03)
== END 2024-10-08 17:07 | disposition home or self-care (01) ==
PROVIDERS: Emergency Provider Physician Assistant; PCP Nurse Practitioner Family
DX: M25.512 Pain in left shoulder (principal); Z72.0 Tobacco use
CPT/HCPCS: 73030; 96372; 99284; J1885; J2270; J2919

== ENCOUNTER 2024-10-18 09:36 | Outpatient (CLI) | payer MEDICAID, SELFPAY ==
--- NOTE | 2024-10-18 10:15 | MR_ITS ---
WS: [id number] MRI LEFT SHOULDER NONCONTRAST TECHNIQUE: Sagittal T2, coronal T1, T2 and proton density imaging. Axial gradient PDE imaging. CLINICAL INFORMATION: left shoulder pain COMPARISON: 09/19/2023 FINDINGS: Marked downsloping acromion. Impingement on the distal supraspinatus. Moderate degenerative arthritis of the AC joint with a small amount of subacromial subdeltoid fluid. Chronic thinning of the supraspinatus which appears intact. Infraspinatus and teres minor appear intact. Biceps tendon appears intact within the bicipital groove. Intra-articular biceps tendon appears intact. Glenoid labrum appears grossly normal. Subscapularis tendon appears intact distally. Normal bone marrow signal in the glenoid. Biceps labral anchor appears intact. Subchondral cystic change involving the greater tuberosity. No acute fractures. No other significant changes compared to previous. MR/MR shoulder LT wo con* [id number] IMPRESSION: 1. Marked downsloping acromion with narrowing of the subacromial space. Imping ement distal supraspinatus with tendinopathy and chronic thinning. 2. Pressure cuff is otherwise intact. 3. Biceps tendon is intact within the bicipital groove. Intra-articular biceps tendon appears intact. 4. Biceps labral anchor appears intact. 5. Subchondral cystic changes involving the greater tuberosity with edema. 6. No other significant changes compared to previous.
== END 2024-10-18 09:37 | disposition home or self-care (01) ==
LOC: RAD 09:38
PROVIDERS: PCP Nurse Practitioner Family; Visit Provider Student in an Organized Health Care Education/Training Program
DX: M67.912 Unspecified disorder of synovium and tendon, left shoulder (principal); M25.512 Pain in left shoulder; M19.012 Primary osteoarthritis, left shoulder
CPT/HCPCS: 73221

== ENCOUNTER 2024-11-23 15:33 | Outpatient (CLI) | payer MEDICAID, SELFPAY ==
--- NOTE | 2024-11-23 16:00 | MR_ITS ---
WS: [id number] MRI RIGHT HIP WITHOUT CONTRAST. COMPARISON: None Multiplanar, multisequence imaging is performed without contrast. History: Deformity RIGHT gluteal region. Marker is placed along the posterior RIGHT pelvis at the site of deformity. There is a slight indentation of the subcutaneous soft tissues. The underlying gluteus muscles are symmetric bilaterally with no volume loss. Within the subcutaneous soft tissues there is a change in the signal most consistent with an area of fat necrosis. Signal abnormality in the subcu soft tissue measures 1.3 x 2.5 cm. No additional areas of fat necrosis or volume loss identified. Normal marrow signal. Hip joints are symmetric bilaterally. No fluid in the subtrochanteric bursa. No muscle atrophy or edema. Visualized urinary bladder and pelvis are normal. MR/MR hip RT wo con* [id number] IMPRESSION: 1. Soft tissue abnormality in the posterior RIGHT pelvis is an area of fat nec rosis. Correlate for prior trauma or injection site or insect bite. 2. The underlying gluteus muscles are symmetric bilaterally with no volume los s. 3. No subcutaneous edema.
== END 2024-11-23 15:34 | disposition home or self-care (01) ==
LOC: RAD 15:34
PROVIDERS: PCP Nurse Practitioner Family; Visit Provider Physician Assistant
DX: Q79.9 Congenital malformation of musculoskeletal system, unspecified (principal); M79.89 Other specified soft tissue disorders
CPT/HCPCS: 73721

== ENCOUNTER 2024-12-30 10:26 | Day surgery (SDC) | payer MEDICAID, SELFPAY ==
[2024-12-30] VITALS (10 sets, daily range): BP systolic 87–125; BP diastolic 51–89; PULSE 59–90; RESP 17–20; TEMP 36.2–36.6; O2SAT 97–100; BMI 19.7
[2024-12-30] MEDS: acetaminophen 1,000 MG/100 ML PIGGYBACK 400 MG IV (11:25)
--- NOTE | 2024-12-30 11:56 | W.PM.OPSFHP ---
Same Day Surgery H&P Indication for Procedure/HPI DATE OF PROCEDURE: December 30, 2024 CHIEF COMPLAINT/INDICATIONFOR SURGICAL PROCEDURE: Left shoulder subacromial impingement, AC joint arthritis PREOP DIAGNOSIS: Left shoulder subacromial impingement, AC joint arthritis PLANNED PROCEDURE: Operation Date: 12/30/24 12:40 Proposed Procedures p LEFT Shoulder Arthroscopy(Left) - Omar Lee, DO s LEFT Shoulder Subacromial Decompression(Left) - Omar Lee, DO s LEFT Acromioclavicular Joint Resection(Left) - Omar [place], DO Medications/Allergies* Home Medications ?Medication ?Instructions ?Recorded ?Confirmed ?Type acetaminophen 325 mg tablet 325 mg PO QID PRN Pain 03/17/24 12/29/24 History (Tylenol) ibuprofen 200 mg tablet 200 mg PO Q6H PRN Pain 03/17/24 12/29/24 History Allergies/Adverse Reactions Allergy/AdvReac Type Severity Reaction Status Date / Time Latex, Natural Rubber Allergy Intermediate sick Verified 12/30/24 11:05 Current Medications: Generic Name Dose Route Start Last Admin Trade Name Freq PRN Reason Stop Dose Admin Sodium Chloride 1,000 mls @ 30 mls/hr 12/30/24 10:45 12/30/24 11:25 Sodium Chloride 0.9% IV 12/31/24 10:44 30 mls/hr .Q24H KE Administration Pertinent History/Comorbid Conditions* Medical History (Updated 11/16/24 @ 11:31 by HENRY Mackey) Tick bite Muscle deformity Indention right buttocks Left shoulder pain Bipolar depression Rotator cuff impingement syndrome of left shoulder Impingement syndrome, shoulder, left Anemia Hair loss Gall stones, common bile duct Gall stone in bile duct with infection of gallbladder Muscle spasm Chronic back pain Low back pain Lumbar back sprain DDD (degenerative disc disease), lumbosacral DDD (degenerative disc disease), thoracic Back strain Elevated liver enzymes Ingrown left greater toenail Muscle cramps Fatigue Lower respiratory infection Infection of tooth Upper respiratory infection Pelvic pain [place]-Walker grade 3 cystocele Dupuytrens contracture Carpal tunnel syndrome Right hand pain state Hypertension screen Medication management Fatigue Menorrhagia Vitamin D deficiency Cough Environmental and seasonal allergies Surgical History (Updated 07/13/24 @ 09:26 by HENRY Piña) History of laparoscopic cholecystectomy Status post bladder repair Hx of hysterectomy (~11/14/20) Laproscopic assisted vaginal hysterectomy-- Dr. Mahoney at [facility] [place] of [place] [facility] [place] Family History (Updated 10/02/20 @ 14:26 by Shonna Conn LPN) Cervical cancer Mother Ovarian cancer Mother Family/Other Maternal Aunts x4 Ovarian cyst Mother Family/Other x3 Maternal Aunt Clotting disorder Mother Grandmother Maternal Cancer Mother bone cancer Grandfather Maternal-- cancer spread throughout body Family/Other Nephew--appendix cancer Hypertension Mother Family/Other x1 Maternal Aunt Thyroid disease Family/Other Maternal Aunt Stroke Mother Denies family history of Diabetes Hyperlipidemia Chronic kidney disease (CKD) Social History Smoking and tobacco/nicotine status: current every day tobacco/nicotine user Pertinent Exam Findings alert, oriented x 3, operative site marked and procedure specific exam findings Please refer to detailed orthopedic examination on 11/03/2024 listed below: Left Shoulder -Tender to palpation -over AC joint and biceps tendon -Range of motion--limited-active 0-110 and passive 110-140. -Rotator cuff strength-internal and external intact -Jobes test-positive -Speed's Test-positive -O'Briens test-positive -Hughes impingement-positive -Empty can test-positive -Radial pulse 2+, normal cap refill under 2 seconds and patient can wiggle fingers. -Sensation to hand intact Recommendations Risks and benefits of procedure reviewed and Patient/family agree to proceed Surgery/Procedure today Other Plans: Plan to proceed to the OR today for left shoulder diagnostic and surgical arthroscopy with subacromial decompression and possible AC joint resection. Patient understands the ins and outs procedure risk benefits complication alternatives of surgery and through shared decision-making patient elects proceed with surgical invention. All questions answered at this time. Coding Level of Care Code Acute Code for Chg Fwd
--- NOTE | 2024-12-30 12:36 | SUR.PREOP ---
Left interscalene block completed at bedside in OPS using 20ml 0.5% bupivicaine
--- NOTE | 2024-12-30 12:36 | ANES.PREANE2 ---
Pre-Anesthetic Assessment Height/Weight: Height 1.63 m Weight 52.163 kg Temp Pulse Resp BP Pulse Ox O2 Del Method 97.8 F 90 17 125/83 97 Room Air 12/30/24 11:10 12/30/24 11:10 12/30/24 11:10 12/30/24 11:10 12/30/24 11:10 12/30/24 11:12 Preop Diagnosis: Left shoulder subacromial impingement, AC joint arthritis Operation Date: 12/30/24 12:40 Proposed Procedures p LEFT Shoulder Arthroscopy(Left) - Omar Lee, DO s LEFT Shoulder Subacromial Decompression(Left) - Omar Lee DO s LEFT Acromioclavicular Joint Resection(Left) - Omar Lee DO Familial anesthetic complications: None Was Beta Delon taken within 24 hours: N/A Was Clonidine taken within 24 hours: N/A Last intake: Intake Last Liquid Date 12/29/24 Last Liquid Time 19:00 Last Solid Date 12/29/24 Last Solid Time 17:00 Social No alcohol and No tobacco Exam alert, oriented x 3, clear to auscultation bilaterally and regular rate & rhythm Airway Mallampati: Class II Dentition: false CV/HEM Hypertension GI Gastroesophageal Reflux Disease Anesthetic Plan ASA status: 2 Anesthesia: General and Regional (specify below) Medications/Allergies Home Medications ?Medication ?Instructions ?Recorded ?Confirmed ?Last Taken ?Type acetaminophen 325 mg tablet 325 mg PO QID PRN Pain 03/17/24 12/29/24 12/29/24 History (Tylenol) ibuprofen 200 mg tablet 200 mg PO Q6H PRN Pain 03/17/24 12/29/24 12/27/24 History docusate sodium 100 mg capsule 100 mg PO BID #14 caps 03/30/24 12/29/24 12/29/24 Rx (Colace) Allergies Allergy/AdvReac Type Severity Reaction Status Date / Time Latex, Natural Rubber Allergy Intermediate sick Verified 12/30/24 11:05 Current Medications Generic Name Dose Route Start Last Admin Trade Name Freq PRN Reason Stop Dose Admin Sodium Chloride 1,000 mls @ 30 mls/hr 12/30/24 10:45 12/30/24 11:25 Sodium Chloride 0.9% IV 12/31/24 10:44 30 mls/hr .Q24H KE Administration PFSH Anesthesia Medical History Tick bite Muscle deformity Indention right buttocks Left shoulder pain Bipolar depression Rotator cuff impingement syndrome of left shoulder Impingement syndrome, shoulder, left Anemia Hair loss Gall stones, common bile duct Gall stone in bile duct with infection of gallbladder Muscle spasm Chronic back pain Low back pain Lumbar back sprain DDD (degenerative disc disease), lumbosacral DDD (degenerative disc disease), thoracic Back strain Elevated liver enzymes Ingrown left greater toenail Muscle cramps Fatigue Lower respiratory infection Infection of tooth Upper respiratory infection Pelvic pain [place]-Walker grade 3 cystocele Dupuytrens contracture Carpal tunnel syndrome Right hand pain state Hypertension screen Medication management Fatigue Menorrhagia Vitamin D deficiency Cough Environmental and seasonal allergies Surgical History History of laparoscopic cholecystectomy Status post bladder repair Hx of hysterectomy (~11/14/20) Laproscopic assisted vaginal hysterectomy-- Dr. Mahoney at [facility] History of tubal ligation 2014 at [facility] [place] Dr. Arango Family History Mother Cancer bone cancer Cervical cancer Ovarian cancer Clotting disorder Hypertension Stroke Ovarian cyst Grandfather Cancer Maternal-- cancer spread throughout body Family/Other Ovarian cancer Maternal Aunts x4 Cancer Nephew--appendix cancer Hypertension x1 Maternal Aunt Thyroid disease Maternal Aunt Ovarian cyst x3 Maternal Aunt Grandmother Clotting disorder Maternal Denies family history of Diabetes Hyperlipidemia Chronic kidney disease (CKD) Social History Smoking and tobacco/nicotine status: current every day tobacco/nicotine user Anesthesia Procedures Nerve Block Nerve Block 1: Main Anesthesia: general anesthesia Time Out Performed: Yes Consent: requested by attending/covering physician, from patient, from other, risks and benefits reviewed and patient agrees to proceed Nerve block location: interscalene (L) Anesthesia monitors applied: pulse oximetry, EKG, BP cuff and oxygen Nerve block position: semi sitting Anesthetic Used: ropivicaine 0.5% (20 ml) and with decadron (4 mg) Ultrasound used to: recognize landmarks, visualize and ID brachial plexus, in supraclavicular region and visualize and ID interscalene groove Nerve Stimulator Used?: No Interscalene/Femoral BLK: 2 stimuplex 22 g needle used for position and inplane approach, visualize local anesthetic spread and no vascular puncture identified Injection: neg aspiration of heme Patient Tolerated Procedure: well Complications: none
[2024-12-30] MEDS: ceFAZolin 2,000 MG in sodium chloride 0.9% (plus) 50 ML 100 MG IV (12:44)
--- NOTE | 2024-12-30 14:15 | W.PM.BPON ---
Date of Procedure: [December 30, 2024] Surgeon: [Dr. Jesus DO] Treating Plant Supervisor(s): [Austin Lee PA-C] Procedure(s) performed: [Left shoulder arthroscopic Labral debridement Subacromial decompression AC joint resection Rotator cuff debridement] Findings of the procedure(s): [Left shoulder, partial labral tearing, subacromial bursitis, AC joint arthritis rotator cuff partial tear under 10%. Procedure went well] Estimated blood loss: [5 mL] Specimen(s) removed: [N/A] Post-operative diagnosis: [Left shoulder, partial labral tearing, subacromial bursitis, AC joint arthritis rotator cuff partial tear under 10%.]
--- NOTE | 2024-12-30 14:18 | PM.OP ---
Operative Report Date of procedure: December 30, 2024 Surgeon: Omar Lee DO Senior Corporate Accountant: Austin Lee PA-C: PA was necessary for assistance in this case with shoulder positioning to execute the procedure, assistance with instrumentation, as well as implant fixation when necessary, assist with wound closure and dressing application. Procedure: Preoperative diagnosis: Left shoulder subacromial impingement, AC joint arthritis Post-op diagnosis:? Left shoulder, partial labral tearing, subacromial bursitis, AC joint arthritis rotator cuff partial tear under 10% Procedure done: Left?shoulder?diagnostic and surgical arthroscopy with rotator cuff debridement Left?shoulder?diagnostic and surgical arthroscopy labral debridement Left?shoulder?diagnostic and surgical arthroscopy acromioclavicular joint resection Left?shoulder?diagnostic and surgical arthroscopy subacromial decompression (acromioplasty and bursectomy) Surgeon: Omar Lee DO Estimated blood loss: [5]mL IV fluids: 1000 mL Implants: None Complications: None Condition: stable Disposition: same day Brief History: Patient been seen and worked up in the outpatient setting for?Left?shoulder?pain.? Pt had an MRI which showed findings below.? Patient's failed conservative treatment and has weakness.? We talked about treatment options far as nonoperative and operative intervention.? We talked about risk benefits complication alternatives surgical nonsurgical treatment options.? Understanding risk of surgery pt agrees to proceed with surgical intervention.? All questions have been answered at this time.? Patient elects proceed with surgery and consent obtained in preop holding area for left shoulder diagnostic and surgical arthroscopy with subacromial decompression possible AC joint resection MR/MR shoulder LT wo con* [id number] IMPRESSION: 1. Marked downsloping acromion with narrowing of the subacromial space. Impingement distal supraspinatus with tendinopathy and chronic thinning. 2. Pressure cuff is otherwise intact. 3. Biceps tendon is intact within the bicipital groove. Intra-articular biceps tendon appears intact. 4. Biceps labral anchor appears intact. 5. Subchondral cystic changes involving the greater tuberosity with edema. 6. No other significant changes compared to previous. Procedure: Patient seen evaluated in the preoperative holding area.? Consent reviewed and signed with patient.? Once again reviewed patient's MRI results as well as? planned surgical intervention.? Correct extremity marked.? Patient seen evaluated by anesthesia department received regional anesthesia.? Once ready for surgery was taken back to the operative suite.? Patient then subsequently underwent anesthesia per the anesthesia department was transported onto the OR table.? Patient was then placed into a lateral decubitus position with a beanbag and was appropriately secured to the bed.? All bony prominences well-padded.? Patient then had the?Left?upper extremity was then prepped and draped in standard orthopedic fashion.? Patient received appropriate preoperative antibiotics.? Final timeout performed. The?Left?upper extremity was then held in hanging from traction utilizing sterile technique.? Next started with standard diagnostic and surgical arthroscopy with posterior portal position introduced arthroscope into the glenohumeral joint.? Visualized the glenohumeral joint I then introduced a spinal needle within the rotator cuff interval to confirm appropriate anterior portal placement.? Once this was confirmed I then made my small incision and then introduced my arthroscopic shaver into the glenohumeral joint.? After thorough debridement the bicep tendon was inspected the bicep tendon was intact with no signs of tendinitis or inflammation as well as no unstable bicep tendon anchor complex and no evidence of SLAP tear. Next I evaluated the subscapularis tendon which was intact and no evidence of tear. ?Next there was mild labral frying on anterior labrum.? ? I then subsequently utilized a a arthroscopic shaver and thermal wand to perform a labral debridement.? This point time I then visualized the glenohumeral joint.? The glenohumeral joint was found to have grade 0-1? chondromalacia throughout.? Axillary pouch was free of loose bodies from viewing the posterior portal.? Next a visualized the rotator cuff superiorly patient had negative escape bubble sign no evidence of rotator cuff tear on the articular surface. ?This completed my work within the glenohumeral joint all fluid was suctioned free of the joint.? ?Next I reintroduced the arthroscope posteriorly.? And went to the subacromial space.? I established my lateral working portal. Thermal wand was then introduced laterally and then I subsequently performed extensive bursectomy of the subacromial space.? Patient had a large anterior bone spur.? At this point time I proceeded with my AC joint resection thermal wand was used and track to the anterior edge of the acromion and then tracked all the way to the AC joint.? Once identified the AC joint this was very arthritic in nature.? Thermal wand was placed anteriorly to establish appropriate plane for AC joint resection.? Once appropriate margins and anterior inferior and anterior capsule was released I then introduced arthroscopic shaver and a bur and power rasp and performed AC joint resection of both the acromion to cope plane at the AC joint and a distal clavicle resection was then performed totaling 1 cm in size and was confirmed.? This completed my AC joint resection and I then introduced the arthroscopic shaver laterally while continuing to view posteriorly.? I then performed an acromioplasty to complete my subacromial decompression prior to evaluating rotator cuff. At this point in time due to patient's large anterior spur there definitely was signs of partial bursal sided rotator cuff tearing but this was under 10% of the rotator cuff thickness the entirety of the rotator cuff was intact with no evidence of full-thickness tear and as a result this was gently debrided with arthroscopic shaver ?I then switched the arthroscope to the lateral portal for visualization and was able to inspect the rotator cuff which again confirmed to be entirely intact. ?Next I then introduced the arthroscopic shaver posteriorly to complete my subacromial decompression appropriate complaining all the way up to the lateral edge of the acromion.? This completed the surgery.? All fluid was suctioned from the?shoulder.? All instruments were removed.? The lateral incision was then closed with nylon stitches.? As well as the portal sites closed with portal nylon stitches.? Xeroform 4 x 4's ABD and tape was then applied to the?Left?shoulder?and was placed into a?shoulder sling..? Patient was then awakened from anesthesia and then taken back to PACU in stable condition.? Patient tolerated procedure without any issues. Disposition: Patient taken back in stable condition recovering well.? Dressings on in place clean dry and intact.? Will be nonweightbearing to the?Left?upper extremity. Patient to follow-up with me in the office in 2 weeks.? Patient will receive appropriate discharge instruction as well as pain medication postoperatively.? All questions answered.? We will contact the office for any questions or concerns.
--- NOTE | 2024-12-30 14:20 | PM.PACU ---
PACU note Narrative: Patient is a 34-year-old female just underwent a left shoulder arthroscopy. Patient transferred to PACU in stable condition. Pain is well controlled. shoulder Dressing on , dry and in place. Patient's operative arm is in a shoulder immobilizer. Patient is awake and alert and able to respond to my questions accordingly. Patient's fingers are warm with good perfusion. Normal cap refill under 2 seconds. Unable to assess further range of motion in arm due to sling. Unable to assess sensation due to residual localized anesthetic. Exam: awake Disposition: discharged
[2024-12-30] MEDS: ondansetron 2 mg/ML SDV 2 mL 4 MG IVP (14:30)
--- NOTE | 2024-12-30 15:09 | SUR.PHASEII ---
Patient ambulated to restroom with family walking beside her. Block was given in pre-op and is working, pain level is 0/10
[2024-12-30] MEDS: HYDROcodone-acetaminophen 5-325 mg Tablet 1 TAB PO (15:21)
--- NOTE | 2024-12-30 15:35 | ANE.PACU2 ---
Inpatient post-anesthesia follow up: Airway intact: Yes Vital signs: Temperature 97.7 F Pulse Rate 78 Respiratory Rate 17 Blood Pressure 113/77 Pulse Oximetry 98 Oxygen Delivery Me thod Room Air Oxygen Flow Rate 6 Fraction of Inspir ed Oxygen Hydration adequate: Yes Nausea and vomiting: No Pain level: 1 Mental status: Baseline
== END 2024-12-30 15:28 | disposition home or self-care (01) ==
PROVIDERS: PCP Nurse Practitioner Family; Visit Provider Student in an Organized Health Care Education/Training Program
PROC: (CPT 29805; principal; 2024-12-30 12:40)
PROC: (CPT 29826; 2024-12-30 12:40)
PROC: 0RSH0ZZ Reposition Left Acromioclavicular Joint, Open Approach (ICD-10-PCS; CPT 29823; 2024-12-30 12:40)
PROC: (CPT 29823; 2024-12-30 12:40)
PROC: 0LQ24ZZ Repair Left Shoulder Tendon, Percutaneous Endoscopic Approach (ICD-10-PCS; CPT 29827; 2024-12-30 12:40)
DX: M75.42 Impingement syndrome of left shoulder (principal); S43.492A Other sprain of left shoulder joint, initial encounter; X58.XXXA Exposure to other specified factors, initial encounter; M75.52 Bursitis of left shoulder; M19.012 Primary osteoarthritis, left shoulder; M75.112 Incomplete rotator cuff tear or rupture of left shoulder, not specified as traumatic; K21.9 Gastro-esophageal reflux disease without esophagitis; D64.9 Anemia, unspecified; F17.200 Nicotine dependence, unspecified, uncomplicated
CPT/HCPCS: 29823; 29824; J0131; J0169; J0690; J1100; J1885; J2250; J2405; J2704; J2795; J3010; J3490; J7030; J9999

== ENCOUNTER → 2025-01-24 09:37 | Outpatient (BNVA) | payer MEDICAID, SELFPAY | PROVIDERS: PCP Nurse Practitioner Family; Visit Provider Nurse Practitioner Family | DX: R30.9 Painful micturition, unspecified (principal) | CPT/HCPCS: 81003; 87086 ==

== ENCOUNTER 2025-02-11 15:21 | Outpatient (CLI) | payer MEDICAID, SELFPAY ==
--- NOTE | 2025-02-11 15:45 | USCV_ITS ---
Viola Beck Age: 34 Gender: F : 1990 Exam Date: 02/11/2025 16:11 Ordering Phys: HUA Berman APRN Technologist: Exam Location: [facility] [place] Indication: painful varicose veins HISTORY: painful varicose veins PROCEDURES: Venous duplex imaging was performed in bilateral lower extremities. FINDINGS: No evidence of DVT seen in any vessel visualized at this time. CONCLUSIONS No evidence of right lower extremity DVT. No evidence of left lower extremity DVT. Benjamin Weems MD (Electronically Signed) Final Date: 11 February 2025 16:46 S
== END 2025-02-11 15:22 | disposition home or self-care (01) ==
LOC: RAD 15:21
PROVIDERS: PCP Nurse Practitioner Family; Visit Provider Nurse Practitioner Family
DX: I83.813 Varicose veins of bilateral lower extremities with pain (principal)
CPT/HCPCS: 93970

== ENCOUNTER → 2025-02-18 11:13 | Outpatient (BNVA) | payer MEDICAID, SELFPAY | PROVIDERS: PCP Nurse Practitioner Family; Visit Provider Nurse Practitioner Family | DX: S39.012A Strain of muscle, fascia and tendon of lower back, initial encounter (principal); X58.XXXA Exposure to other specified factors, initial encounter; M41.86 Other forms of scoliosis, lumbar region | CPT/HCPCS: 72114 ==

== ENCOUNTER 2025-03-17 14:46 | Outpatient (RCR) | payer MEDICAID, SELFPAY | END 2025-04-10 23:59 | disposition home or self-care (01) | LOC: WPT 14:46 | PROVIDERS: Visit Provider Family Medicine | DX: M54.50 Low back pain, unspecified (principal); G89.29 Other chronic pain | CPT/HCPCS: 97161 ==

== ENCOUNTER → 2025-04-11 16:30 | Outpatient (BNVA) | payer MEDICAID, SELFPAY | PROVIDERS: PCP Nurse Practitioner Family; Visit Provider Nurse Practitioner Family | DX: R05.9 Cough, unspecified (principal) | CPT/HCPCS: 87400; 87426 ==